=== PATIENT | male | born 1965 | race Caucasian/White ===

== ENCOUNTER → 2017-02-10 | Outpatient (CLI) | payer BC ==
[~2017-02-10] MED LIST: ACHYD1T PO; MAGN1TAB PO; POLY17PO23 PO
== END ==
LOC: LAB 09:32
PROVIDERS: ATTEND Internal Medicine
DX: R50.9 Fever, unspecified (principal); M79.1 Myalgia
CPT/HCPCS: 87804

== ENCOUNTER → 2018-04-07 | Outpatient (CLI) | payer BC ==
[~2018-04-07] VITALS: Ht 188 cm; Wt 99.8 kg
[2018-04-07] MEDS: LIDOCAINE 1% INJ 20 ML 20 ML VIAL INJ ONE (11:22)
[2018-04-07] MEDS: IOHEXOL 240 MGI/ML 20 ML (OMNIPAQUE) VIAL IV ONE (11:39)
[2018-04-07] MEDS: GADOBUTROL 7.5 MMOL/7.5 ML (GADAVIST) VIAL IV ONE (11:39)
[2018-04-07] MEDS: LIDOCAINE 1% INJ 20 ML 20 ML VIAL ONE (11:41)
--- NOTE | 2018-04-07 13:10 | Diagnostic Imaging Report ---
EXAMINATION: MRI of the right shoulder with contrast. INDICATION: Shoulder pain, prior history of shoulder surgery. TECHNIQUE: Multiplanar images utilizing both T1- and T2-weighted sequences were obtained. This study was performed following administration of intra-articular contrast. COMPARISON: There are no prior exams available for comparison. FINDINGS: On the STIR coronal series, there is no abnormal signal within the rotator cuff to suggest a tear. There is a vague area of increased signal within the musculotendinous portion of the supraspinatus muscle as it courses over the humeral head. This may be secondary to tendinosis. There is also some hypertrophy of the acromioclavicular joint, and this does result in narrowing of the outlet for the supraspinatus muscle. There is also a trace amount of fluid in the subdeltoid bursa. This does suggest that there is an element of mild inflammation present as well. The biceps tendon and the subscapularis tendon are intact. The axial images do suggest that there is a tear of the posterior labrum. The labrum is also thinned posteriorly and may be partially torn on a degenerative basis. There is no abnormal signal arising from the osseous structures to suggest bone edema or a fracture. There are two small cylindrical defects within the glenoid. Most likely, these are a sequela of prior surgery. IMPRESSION: 1. There is no evidence for a tear of the rotator cuff, and the supraspinatus muscle is not retracted or bunched. 2. There is hypertrophy of the acromioclavicular joint, and this does result in narrowing of the outlet for the supraspinatus muscle. There is also tendinosis of the musculotendinous portion of the supraspinatus muscle in this area. 3. There is a small tear of the labrum posteriorly. 4. There are postsurgical changes involving the glenoid. 5. There is no acute bony abnormality noted. Dictated by: Dictated on workstation # [id number]
--- NOTE | 2018-04-07 18:09 | Diagnostic Imaging Report ---
INDICATION: Right shoulder injury and pain. PROCEDURE: Patient was brought to the procedure room and placed on the table in the supine position. Right shoulder was prepped and draped in the usual sterile fashion. A small amount of 1% lidocaine was utilized for local anesthesia. A 22-gauge needle was advanced into the right shoulder at the rotator interval. 50 mL solution of iodinated contrast, normal saline and gadolinium was injected under fluoroscopic observation. Needle was withdrawn and hemostasis was obtained. Patient tolerated the procedure well and was sent to MRI in satisfactory condition. IMPRESSION: Successful right shoulder injection of gadolinium contrast solution, using fluoroscopy. Dictated by: Dictated on workstation # [id number]
== END ==
LOC: RAD 10:35
PROVIDERS: ATTEND Specialist
DX: S46.011A Strain of muscle(s) and tendon(s) of the rotator cuff of right shoulder, initial encounter (principal); M47.813 Spondylosis without myelopathy or radiculopathy, cervicothoracic region; M62.89 Other specified disorders of muscle; Z98.890 Other specified postprocedural states
CPT/HCPCS: 23350; 73040; 73222

== ENCOUNTER 2018-05-20 05:29 | Outpatient (CLI) | payer BC ==
[~2018-05-20] VITALS: Ht 188 cm; Wt 101.2 kg
[2018-05-20] MEDS ORDERED: ATOR20TA66 PO (12:31)
== END 2018-05-20 12:33 | disposition home or self-care (01) ==
LOC: PREOP 05:29
PROVIDERS: ATTEND Internal Medicine
DX: Z01.818 Encounter for other preprocedural examination (principal)

== ENCOUNTER 2018-05-27 06:54 | Day surgery (SDC) | payer BC ==
--- NOTE | 2018-05-09 17:31 | HISTORY AND PHYSICAL ---
DATE OF SERVICE: COLONOSCOPY HISTORY AND PHYSICAL HISTORY OF PRESENT ILLNESS: The patient is a 53-year-old white male, who was seen in the office on 04/28/2018 for yearly wellness evaluation. He had no previous history of screening colonoscopy. He is not aware of any family history for colon cancer, but does have one brother, who had history of colon polyps as well as prostate cancer diagnosed around the age of 50. He reports that he feels well and voices no complaints. PAST MEDICAL HISTORY: Significant for hyperlipidemia for which he takes atorvastatin 20 mg daily. His only prescription medication. He is on no aspirin or nonsteroidal medication. FAMILY HISTORY: Father is living, had had an CT in his early 70s and pacemaker placement, currently 79 years of age. Mother had a history of coronary stents placed in her early 70s and is 76 years of age. He has one brother in his mid 50s. He was diagnosed with prostate cancer around the age of 50. Not aware of any other family history for malignancy. PAST SURGICAL HISTORY: He reports no past surgeries. PHYSICAL EXAMINATION: GENERAL: Reveals a well-appearing white male in no acute distress. VITAL SIGNS: Blood pressure was 116/80, weight of 223.6 pounds, is up 1.6 pounds from one year ago. HEENT: Examination is unremarkable. NECK: Revealed no JVD, adenopathy or bruits. There is a Mallampati class 2 oropharyngeal configuration. CHEST: Clear to auscultation. CARDIOVASCULAR: Revealed a regular rate and rhythm without murmur, S3 or S4. ABDOMEN: Soft, supple without mass, organomegaly or tenderness. EXTREMITIES: Reveal no cyanosis, clubbing or edema. SKIN: Evaluation revealed no suspicious nevi. LABORATORY DATA: Blood tests were obtained including a chemistry panel, lipid panel and a PSA. PSA was stable and normal at 1.95. Total cholesterol is 145 with an HDL of 46, triglyceride level 152 and LDL of 69. Nonfasting blood sugar was 106. His chemistry panel was normal. BUN 23 with a creatinine of 1.3 and estimated GFR 63. ASSESSMENT AND PLAN: Unremarkable wellness examination. Rectal examination was deferred to the time of colonoscopy. He does have a history of BPH. Colonoscopy was set up for 05/27/2018. Prep instructions with Suprep kit were given and questions were answered. We will see him back for yearly wellness evaluation. In addition, the patient did receive his flu shot in 01/2018. Job ID: [id number] DocumentID: [id number] Dictated Date: 04/28/2018 16:29:18 Bladder Blower Date: 04/28/2018 17:16:47 Dictated By: EMILY HILL MD
[~2018-05-27] VITALS: Ht 188 cm; Wt 101.2 kg
[~2018-05-27 06:54] MED LIST changes: +ATOR20TA66 PO
[2018-05-27] MEDS ORDERED: D5 LR IV SOLUTION 1,000 ML IV ONE (07:01)
[2018-05-27] MEDS ORDERED: D5 LR IV SOLUTION 1,000 ML IV STA (07:16)
[2018-05-27 07:19] VITALS: BP 131/91
[2018-05-27] MEDS ORDERED: fentaNYL INJECTION 100 MCG/2 ML AMP ONE ×2 (07:26→08:13)
[2018-05-27] MEDS ORDERED: MIDAZOLAM 2 MG/2 ML (VERSED) VIAL ONE ×3 (07:26→08:29)
[2018-05-27] MEDS ORDERED: LIDOCAINE JELLY 2% 6 ML SYRINGE ONE (07:27)
[2018-05-27] MEDS ORDERED: fentaNYL INJECTION 100 MCG/2 ML AMP IVP ONE (07:30)
[2018-05-27] MEDS ORDERED: LIDOCAINE JELLY 2% 6 ML SYRINGE MM PRN (07:30)
[2018-05-27] MEDS ORDERED: MIDAZOLAM 2 MG/2 ML (VERSED) VIAL IVP ONE (07:30)
--- NOTE | 2018-05-27 08:49 | Pre-Op Note & Conscious Sedat ---
Pre-Operative Progress Note H&P Reviewed The H&P was reviewed, patient examined and no changes noted. Date H&P Reviewed: May 27, 2018 Time H&P Reviewed: 07:30 Conscious Sedation Pre-Proced ASA Score 2 For ASA 3 and 4: Consider anesthesia and medical clearance. Also, for patients with a history of failed moderate sedation consider anesthesia. Airway Lungs Heart ASA score ASA 1: a normal healthy patient ASA 2: a patient with a mild systemic disease (mid diabetes, controlled hypertension, obesity ASA 3: a patient with a severe systemic disease that limits activity (angina , COPD, prior Myocardial infarction) ASA 4: a patient with an incapacitating disease that is a constant threat to life (CHF, renal failure) ASA 5: a moribund patient not expected to survive 24 hrs. (ruptured aneurysm) ASA 6: a declared brain- patient whose organs are being harvested. For emergent operations, add the letter E after the classification Mallampati Classification Grade 2 Sedation Plan Analgesia, Amnesia, Plan communicated to team members, Discussed options with patient/fam, Discussed risks with patient/fam The patient is an appropriate candidate to undergo the planned procedure, sedation, and anesthesia. The patient immediately re-assessed prior to indication. EMILY HILL MD May 27, 2018 08:49
[2018-05-27 08:58] VITALS: BP 108/69
[2018-05-27 09:28] VITALS: BP 121/83
--- OUTSIDE RECORDS SUMMARY | 2018-05-27 12:25 | XMS REPORT | Continuity of Care Document ---
Author Author [facility] Organization [facility] Address Unknown Phone Unavailable Allergies Active Description Code Type Severity Reaction Onset Reported/Identified Relationship to Patient Clinical Status Yes codeine [id number] Drug Allergy Unknown N/A 10/03/2012 Medications There is no data. Problems Date Dx Coded Attending Type Code Diagnosis Diagnosed By 10/05/2012 EMILY HILL MD Ot 276.51 DEHYDRATION 10/05/2012 EMILY HILL MD Ot 536.8 STOMACH FUNCTION DIS NEC 10/05/2012 EMILY HILL MD Ot 584.9 ACUTE RENAL FAILURE, UNSPECIFIED 10/05/2012 EMILY HILL MD Ot 591 HYDRONEPHROSIS 10/05/2012 EMILY HILL MD Ot 592.1 CALCULUS OF URETER 02/11/2017 EMILY HILL MD Ot M79.1 MYALGIA 02/11/2017 EMILY HILL MD Ot R50.9 FEVER, UNSPECIFIED 02/25/2017 EMILY HILL MD Ot M79.1 MYALGIA 02/25/2017 EMILY HILL MD Ot R50.9 FEVER, UNSPECIFIED 02/25/2017 EMILY HILL MD Ot M79.1 MYALGIA 02/25/2017 EMILY HILL MD Ot R50.9 FEVER, UNSPECIFIED 10/12/2017 EMILY HILL MD Ot M79.1 MYALGIA 10/12/2017 EMILY HILL MD Ot R50.9 FEVER, UNSPECIFIED 03/31/2018 EMILY HILL MD Ot M79.1 MYALGIA 03/31/2018 EMILY HILL MD Ot R50.9 FEVER, UNSPECIFIED 04/06/2018 EMILY HILL MD Ot M79.1 MYALGIA 04/06/2018 EMILY HILL MD Ot R50.9 FEVER, UNSPECIFIED 04/09/2018 ANGELO ROSALES, XAVIER R Ot M47.813 SPONDYLS W/O MYELOPATHY OR RADICULOPATHY 04/09/2018 XAVIER STEPHENS MD Ot M62.89 OTHER SPECIFIED DISORDERS OF MUSCLE 04/09/2018 XAVIER STEPHENS MD Ot S46.011A STRAIN OF MUSC/TEND THE ROTATOR CUFF OF 04/09/2018 XAVIER STEPHENS MD Ot Z98.890 OTHER SPECIFIED POSTPROCEDURAL STATES 04/10/2018 EMILY HILL MD, Ot M79.1 MYALGIA 04/10/2018 EMILY HILL MD Ot R50.9 FEVER, UNSPECIFIED 04/10/2018 XAVIER STEPHENS MD Ot M47.813 SPONDYLS W/O MYELOPATHY OR RADICULOPATHY 04/10/2018 XAVIER STEPHENS MD Ot M62.89 OTHER SPECIFIED DISORDERS OF MUSCLE 04/10/2018 XAVIER STEPHENS MD Ot S46.011A STRAIN OF MUSC/TEND THE ROTATOR CUFF OF 04/10/2018 XAVIER STEPHENS MD Ot Z98.890 OTHER SPECIFIED POSTPROCEDURAL STATES 05/05/2018 EMILY HILL MD Ot M79.1 MYALGIA 05/05/2018 EMILY HILL MD Ot R50.9 FEVER, UNSPECIFIED 05/05/2018 XAVIER STEPHENS MD Ot M47.813 SPONDYLS W/O MYELOPATHY OR RADICULOPATHY 05/05/2018 XAVIER STEPHENS MD Ot M62.89 OTHER SPECIFIED DISORDERS OF MUSCLE 05/05/2018 XAVIER STEPHENS MD Ot S46.011A STRAIN OF MUSC/TEND THE ROTATOR CUFF OF 05/05/2018 XAVIER STEPHENS MD Ot Z98.890 OTHER SPECIFIED POSTPROCEDURAL STATES 05/20/2018 EMILY HILL MD Ot Z01.818 ENCOUNTER FOR OTHER PREPROCEDURAL EXAMIN 05/23/2018 EMILY HILL MD Ot Z01.818 ENCOUNTER FOR OTHER PREPROCEDURAL EXAMIN Procedures There is no data. Results Test Result Range Influenza virus A and B antigen detection - 02/10/17 09:41 FLU RESULT NEGATIVE FOR INFLUENZA A AND B ANTIGENS BY IA NRG Encounters ACCT No. Visit Date/Time Discharge Status Pt. Type Provider Facility Loc./Unit Complaint [id number] 05/20/2018 05:29:00 05/20/2018 12:33:00 DIS Outpatient EMILY HILL MD [facility] PREOP COLONOSCOPY [id number] 04/07/2018 10:35:00 04/07/2018 23:59:59 CLS Outpatient XAVIER STEPHENS MD [facility] RAD STRAIN OF RT SHOULDER [id number] 02/10/2017 09:32:00 02/10/2017 23:59:59 CLS Outpatient EMILY HILL MD [facility] LAB FEVER [id number] 10/03/2012 14:08:00 10/05/2012 09:30:00 DIS Inpatient EMILY HILL MD [facility] SURGICAL L URETERAL STONE W/ OBSTRUCTION ABD PAIN N/V [id number] 05/27/2018 06:54:00 ACT Outpatient EMILY HILL MD [facility] ENDO SCREENING
--- OUTSIDE RECORDS SUMMARY | 2018-05-27 12:25 | XMS REPORT | Continuity of Care Document ---
Author Author [facility] Organization [facility] Address Unknown Phone Unavailable Care Team Providers Care [employer] Principal Name Role Phone EMILY HILL MD PP Insurance Providers Payer Name Policy Number Subscriber Name [id number] Emily Pichardo 01 Self / Same As Patient Advance Directives Directive Response Recorded Date Advance Directives N 10/03/12 2:28pm Health Care Power of Automated Equipment Engineer Technician N 10/03/12 2:28pm Organ Donor N 10/03/12 2:28pm Problems No Known Problems or Medical conditions. Family History History Response Recorded Date/Time Hx Family Cancer N 10/03/12 3:46pm Social History History Response Recorded Date/Time Alcohol Use Occasionally Uses 10/03/12 2: 18pm Recreational Drug Use N 10/03/12 2:18pm Allergies, Adverse Reactions, Alerts Allergen Type Severity Reaction Last Updated Codeine Allergy Unknown 10/03/12 Medications Medication Dose Units Route Sig Qty Days Hydrocodone Bit/Acetaminophen (Lortab 10 Mg) 1 - 2 Tab PO Q4H PRN 30 Magnesium Carbonate/Al Hydrox (Gaviscon Es Tablet Chew) 2 Tab.chew PO Q4H Polyethylene Glycol (Miralax 17 Gm Packet) 17 Gm PO DAILY Response Recorded Date/Time Status not known Unknown Results Test Date Result Interp. Ref. Range Alanine Aminotransferase (ALT/SGPT) October 03, 2012 10:42am 46 U/L N 30-65 Albumin October 03, 2012 10:42am 4.5 G/DL N 3.4-5.0 Alkaline Phosphatase October 03, 2012 10:42am 110 U/L N 50-136 Aspartate Amino Transf (AST/SGOT) October 03, 2012 10:42am 21 U/L N 15-37 BUN/Creatinine Ratio October 03, 2012 10:42am 14 - Basophils # (Auto) October 03, 2012 10:42am 0.0 10^3/uL N 0.0-0.1 Basophils (%) (Auto) October 03, 2012 10:42am 1 % N 0-10 Blood Urea Nitrogen October 03, 2012 10:42am 21 MG/DL H 7-18 C-Reactive Protein October 03, 2012 10:42am < 0.2 MG/DL L 0.2-0.9 Calcium Level October 03, 2012 10:42am 8.8 MG/DL N 8.5-10.1 Carbon Dioxide Level October 03, 2012 10:42am 25 MMOL/L N 21-32 Chloride Level October 03, 2012 10:42am 100 MMOL/L L 101-110 Creatinine October 03, 2012 10:42am 1.5 MG/ DL H 0.6-1.3 Eosinophils # (Auto) October 03, 2012 10:42am 0.2 10^3/uL N 0.0-0.3 Eosinophils (%) (Auto) October 03, 2012 10:42am 3 % N 0-10 Glucose Level October 03, 2012 10:42am 168 MG/DL H 74-106 Hematocrit October 03, 2012 10:42am 44 % N 40-54 Hemoglobin October 03, 2012 10:42am 16.1 G/ DL N 13.3-17.7 Lymphocytes # (Auto) October 03, 2012 10:42am 3.9 X 10^3 N 1.0-4.0 Lymphocytes (%) (Auto) October 03, 2012 10:42am 50 % H 12-44 Mean Corpuscular Hemoglobin October 03, 2012 10:42am 32 PG N 25-34 Mean Corpuscular Hemoglobin Concent October 03, 2012 10:42am 36 G/DL N 32-36 Mean Corpuscular Volume October 03, 2012 10:42am 88 FL N 80-99 Mean Platelet Volume October 03, 2012 10:42am 9.8 FL N 7.4-10.4 Monocytes # (Auto) October 03, 2012 10:42am 0.7 X 10^3 N 0.0-1.0 Monocytes (%) (Auto) October 03, 2012 10:42am 9 % N 0-12 Neutrophils # (Auto) October 03, 2012 10:42am 2.9 X 10^3 N 1.8-7.8 Neutrophils (%) (Auto) October 03, 2012 10:42am 38 % L 42-75 Platelet Count October 03, 2012 10:42am 340 10^3/uL N 130-400 Potassium Level October 03, 2012 10:42am 3.9 MMOL/L N 3.6-5.0 Red Blood Count October 03, 2012 10:42am 5.02 10^6/uL N 4.35-5.85 Red Cell Distribution Width October 03, 2012 10:42am 12.1 % N 10.0-14.5 Sodium Level October 03, 2012 10:42am 136 MMOL/L N 135-145 Total Bilirubin October 03, 2012 10:42am 0.7 MG/DL N 0.0-1.0 Total Protein October 03, 2012 10:42am 8.0 G/DL N 6.4-8.2 Urine Bacteria October 03, 2012 11:55am TRACE /HPF - Urine Bilirubin October 03, 2012 11:55am NEGATIVE - Urine Casts October 03, 2012 11:55am NONE / LPF - Urine Clarity October 03, 2012 11:55am CLEAR - Urine Color October 03, 2012 11:55am YELLOW - Urine Crystals October 03, 2012 11:55am NONE /LPF - Urine Culture Indicated October 03, 2012 11:55am NO - Urine Glucose (UA) October 03, 2012 11:55am 1+ H - Urine Ketones October 03, 2012 11:55am 2+ H - Urine Leukocyte Esterase October 03, 2012 11:55am NEGATIVE - Urine Mucus October 03, 2012 11:55am SMALL /LPF H - Urine Nitrite October 03, 2012 11:55am NEGATIVE - Urine Protein October 03, 2012 11:55am NEGATIVE - Urine RBC October 03, 2012 11:55am 2-5 / HPF H - Urine Specific [place] October 03, 2012 11:55am 1.015 L - Urine Squamous Epithelial Cells October 03, 2012 11:55am 0-2 /HPF - Urine Urobilinogen October 03, 2012 11:55am NORMAL MG/DL - Urine WBC October 03, 2012 11:55am RARE / HPF - Urine pH October 03, 2012 11:55am 7 - White Blood Count October 03, 2012 10:42am 7.8 10^3/uL N 4.3-11.0 Estimat Glomerular Filtration Rate October 03, 2012 10:42am 51 - Urine RBC (Auto) October 03, 2012 11:55am 2 + H - Encounters Encounter Location Date/Time Discharged Inpatient [facility] 2:08pm Departed Emergency Room [facility] 12 :00am
--- NOTE | 2018-05-27 21:55 | OPERATIVE REPORT ---
DATE OF SERVICE: COLONOSCOPY SUMMARY INDICATION FOR THE PROCEDURE: Screening colonoscopy. The patient was placed in left lateral decubitus position. Prior to doing colonoscopy, digital rectal evaluation was performed. Anal sphincter tone was normal and the perianal reflexes intact. No abnormalities, no additional inspection of the prostate, anal canal or distal rectal vault. The colonoscope was then inserted into the rectum and under direct visualization advanced to the cecum. The cecum was identified by identification of the ileocecal valve and cecal strap. Photographic documentation was obtained. Careful inspection was made as the colonoscope was withdrawn. FINDINGS: No evidence for internal or external hemorrhoids and the rectum was unremarkable. Sigmoid colon, descending colon, splenic flexure, transverse colon were normal. Present at hepatic flexure was diminutive 4 mm sessile polyp. It was photographed and biopsied and ablated and submitted for histopathology. The ascending colon and cecum were unremarkable. ASSESSMENT: One diminutive polyp was removed via hot forceps from the hepatic flexure with no significant blood loss. This was an otherwise normal colonoscopy to the cecum. We will be abdicating consideration for repeat screening colonoscopy in 10 years as long as there are no surprises on histopathology report and I am his primary care provider. Job ID: [id number] DocumentID: [id number] Dictated Date: 05/27/2018 11:14:29 [employer] Marble Installer Date: 05/27/2018 21:55:00 Dictated By: EMILY HILL MD
== END 2018-05-27 09:40 | disposition home or self-care (01) ==
LOC: ENDO 06:54
PROVIDERS: ATTEND Internal Medicine
DX: Z12.11 Encounter for screening for malignant neoplasm of colon (principal); D12.3 Benign neoplasm of transverse colon; E78.5 Hyperlipidemia, unspecified; N40.0 Benign prostatic hyperplasia without lower urinary tract symptoms; Z79.899 Other long term (current) drug therapy; Z83.71 Family history of colonic polyps; Z80.42 Family history of malignant neoplasm of prostate

== ENCOUNTER 2021-01-13 09:28 | Outpatient (RCR) | payer BC | END 2021-03-18 | disposition home or self-care (01) | DX: M54.2 Cervicalgia (principal); M25.511 Pain in right shoulder ==

== ENCOUNTER 2021-05-18 19:19 | Emergency (ER) | payer BC ==
[2021-05-18] MEDS ORDERED: LACTATED RINGERS 1,000 ML IV SCH (19:30)
[2021-05-18] MEDS ORDERED: KETOROLAC 30 MG/ML VIAL IVP ONE (19:30)
[2021-05-18] MEDS ORDERED: ONDANSETRON 4 MG/2 ML (SDV) Z0FRAN IVP ONE (19:30)
--- NOTE | 2021-05-18 19:35 | ED GU-Male ---
General Chief Complaint: Abdominal/GI Problems Stated Complaint: KIDNEY STONE Source: patient Exam Limitations: no limitations (DONNA RICHMOND APRN) History of Present Illness Date Seen by Provider: May 18, 2021 Time Seen by Provider: 19:33 Initial Comments To ER with sudden onset of left flank pain that began about 2 hours ago. It radiates down to his left testicle. No fever no chills. He has a history of a kidney stone seven or 8 years ago. His only medication is atorvastatin. He follows with Dr. Sharma. Timing/Duration: constant Severity/Quality: moderate Location: left flank Radiation: none Activities at Onset: none Prior Genitourinary Problems: none (DONNA RICHMOND APRN) Allergies and Home Medications Allergies Coded Allergies: Codeine (Unverified Allergy, Unknown, 10/03/12) Patient Home Medication List Home Medication List Reviewed: Yes (DONNA RICHMOND APRN) Atorvastatin Calcium (Atorvastatin Calcium) 20 Mg Tablet, 20 MG PO DAILY, (Reported) Entered as Reported by: YOHANNES TILLMAN on 05/20/18 1231 Hydrocodone/Acetaminophen (Hydrocodone-Acetamin 5-325 mg) 1 Each Tablet, 1 TAB PO Q4H PRN for PAIN-MODERATE (5-7) Prescribed by: DONNA RICHMOND on 05/18/212002 Ibuprofen (Ibuprofen) 800 Mg Tablet, 800 MG PO Q8H PRN for PAIN Prescribed by: DONNA RICHMOND on 05/18/212002 Ondansetron (Ondansetron Odt) 8 Mg Tab.rapdis, 8 MG PO Q6H PRN for NAUSEA/VO MITING Prescribed by: DONNA RICHMOND on 05/18/212035 Sulfamethoxazole/Trimethoprim (Bactrim Ds Tablet) 1 Each Tablet, 1 EACH PO BID Prescribed by: DONNA RICHMOND on 05/18/212002 Tamsulosin HCl (Flomax) 0.4 Mg Cap, 0.4 MG PO DAILY Prescribed by: DONNA RICHMOND on 05/18/212002 Review of Systems Review of Systems Constitutional: see HPI; No chills, No fever EENTM: see HPI Respiratory: no symptoms reported Cardiovascular: no symptoms reported Genitourinary: see HPI Musculoskeletal: no symptoms reported Skin: no symptoms reported Psychiatric/Neurological: No Symptoms Reported Endocrine: No Symptoms Reported Hematologic/Lymphatic: No Symptoms Reported (DONNA RICHMOND APRN) Past Dmolhvn-Jrczwl-Qpapks Hx Seasonal Allergies Seasonal Allergies: No (DONNA RICHMOND APRN) Past Medical History Surgeries: Yes (shoulder sx) Gallbladder Respiratory: No Cardiac: No Neurological: No Reproductive Disorders: No Genitourinary: No Gastrointestinal: No Musculoskeletal: No Endocrine: No HEENT: No Cancer: No Psychosocial: No Integumentary: No Blood Disorders: No (DONNA RICHMOND APRN) Physical Exam Vital Signs Vital Signs - First Documented 05/18/21 19:27 Temp 36.2 Pulse 85 Resp 16 B/P (MAP) 140/95 (110) Pulse Ox 98 O2 Delivery Room Air (SAJAN ESPINOZA MD) Vital Signs Capillary Refill : (DONNA RICHMOND APRN) Height, Weight, BMI Height: 6'2.00" Weight: 223lbs. 0.0oz. [id number]; 28.6 BMI Method:Stated General Appearance: WD/WN, mild distress, other (Currently, pain is improved he rates it at 5 out of 10.) HEENT: PERRL/EOMI, normal ENT inspection Neck: non-tender, full range of motion Respiratory: normal breath sounds, no respiratory distress, no accessory muscle use Gastrointestinal: normal bowel sounds, non tender, soft Back: CVA tenderness (L) Neurologic/Psychiatric: alert, normal mood/affect Skin: normal color, diaphoresis (DONNA RICHMOND APRN) Progress/Results/Core Measures Suspected Sepsis SIRS Temperature: Pulse: Respiratory Rate: Laboratory Tests 05/18/21 19:30: White Blood Count 7.9 Blood Pressure / Mean: Laboratory Tests 05/18/21 19:30: Creatinine 1.54H, Platelet Count 329 (DONNA RICHMOND APRN) Results/Orders Lab Results Laboratory Tests Test 05/18/21 19:30 05/18/21 20:45 Range/Units White Blood Count 7.9 4.3-11.0 10^3/uL Red Blood Count 4.76 4.30-5.52 10^6/uL Hemoglobin 14.9 13.3-17.7 g/dL Hematocrit 44 40-54 % Mean Corpuscular Volume 93 80-99 fL Mean Corpuscular Hemoglobin 31 25-34 pg Mean Corpuscular Hemoglobin Concent 34 32-36 g/dL Red Cell Distribution Width 11.4 10.0-14.5 % Platelet Count 329 130-400 10^3/uL Mean Platelet Volume 9.5 9.0-12.2 fL Immature Granulocyte % (Auto) 0 % Neutrophils (%) (Auto) 53 42-75 % Lymphocytes (%) (Auto) 36 12-44 % Monocytes (%) (Auto) 8 0-12 % Eosinophils (%) (Auto) 3 0-10 % Basophils (%) (Auto) 1 0-10 % Neutrophils # (Auto) 4.2 1.8-7.8 10^3/uL Lymphocytes # (Auto) 2.8 1.0-4.0 10^3/uL Monocytes # (Auto) 0.6 0.0-1.0 10^3/uL Eosinophils # (Auto) 0.2 0.0-0.3 10^3/uL Basophils # (Auto) 0.1 0.0-0.1 10^3/uL Immature Granulocyte # (Auto) 0.0 0.0-0.1 10^3/uL Sodium Level 141 135-145 MMOL/L Potassium Level 3.9 3.6-5.0 MMOL/L Chloride Level 103 98-107 MMOL/L Carbon Dioxide Level 23 21-32 MMOL/L Anion Gap 15 H 5-14 MMOL/L Blood Urea Nitrogen 24 H 7-18 MG/DL Creatinine 1.54 H 0.60-1.30 MG/DL Estimat Glomerular Filtration Rate 53 BUN/Creatinine Ratio 16 Glucose Level 113 H 70-105 MG/DL Calcium Level 9.3 8.5-10.1 MG/DL Urine Color YELLOW Urine Clarity CLEAR Urine pH 6.0 5-9 Urine Specific [place] 1.025 H 1.016-1.022 Urine Protein NEGATIVE NEGATIVE Urine Glucose (UA) NEGATIVE NEGATIVE Urine Ketones NEGATIVE NEGATIVE Urine Nitrite NEGATIVE NEGATIVE Urine Bilirubin NEGATIVE NEGATIVE Urine Urobilinogen 0.2 < = 1.0 MG/DL Urine Leukocyte Esterase NEGATIVE NEGATIVE Urine RBC (Auto) 3+ H NEGATIVE Urine RBC 10-25 H /HPF Urine WBC 2-5 /HPF Urine Squamous Epithelial Cells NONE /HPF Urine Renal Epithelial Cells NONE /HPF Urine Crystals NONE /LPF Urine Bacteria NEGATIVE /HPF Urine Casts NONE /LPF Urine Mucus NEGATIVE /LPF Urine Culture Indicated NO (SAJAN ESPINOZA MD) Medications Given in ED Current Medications Medications Dose Ordered Sig/José Route Start Time Stop Time Status Last Admin Dose Admin Acetaminophen/ Hydrocodone Bitart 1 ea Q4H PRN PO 05/18/21 20:15 05/18/21 20:53 DC 05/18/21 20:40 1 EA Ketorolac Tromethamine 15 mg ONCE ONCE IVP 05/18/21 19:30 05/18/21 19:31 DC 05/18/21 19:36 15 MG Ondansetron HCl 8 mg ONCE ONCE IVP 05/18/21 19:30 05/18/21 19:31 DC 05/18/21 19:36 8 MG (SAJAN ESPINOZA MD) Vital Signs/I&O 05/18/21 05/18/21 19:27 20:53 Temp 36.2 36.2 Pulse 85 79 Resp 16 16 B/P (MAP) 140/95 (110) 138/94 Pulse Ox 98 98 O2 Delivery Room Air Room Air 05/19/21 00:00 Intake Total 1000 ml Balance 1000 ml (SAJAN ESPINOZA MD) Vital Signs/I&O Capillary Refill : (DONNA RICHMOND APRN) Departure Impression Primary Impression: Left ureteral calculus Disposition: HOME, SELF-CARE Condition: Stable Departure-Patient Inst. Decision time for Depature: 20:01 (DONNA RICHMOND APRN) Referrals: EMILY SHARMA MD (PCP/Family) Primary Care Physician MIRANDA ERWIN MD Patient Instructions: Kidney Stones (DC) Add. Discharge Instructions: 1. Return to ER for any concerns 2. Follow-up with your doctor next week 3. Increase fluid intake. Medication as directed. All discharge instructions reviewed with patient and/or family. Voiced understanding. Scripts Ondansetron (Ondansetron Odt) 8 Mg Tab.rapdis 8 MG PO Q6H PRN for NAUSEA/VOMITING, #14 TAB Prov: DONNA RICHMOND APRN 05/18/21 Hydrocodone/Acetaminophen (Hydrocodone-Acetamin 5-325 mg) 1 Each Tablet 1 TAB PO Q4H PRN for PAIN-MODERATE (5-7), #14 TAB Prov: DONNA RICHMOND APRN 05/18/21 Ibuprofen (Ibuprofen) 800 Mg Tablet 800 MG PO Q8H PRN for PAIN, #30 TAB 0 Refills Prov: DONNA RICHMOND APRN 05/18/21 Sulfamethoxazole/Trimethoprim (Bactrim Ds Tablet) 1 Each Tablet 1 EACH PO BID, #10 TAB Prov: DONNA RICHMOND APRN 05/18/21 Tamsulosin HCl (Flomax) 0.4 Mg Cap 0.4 MG PO DAILY, #10 CAP Prov: DONNA RICHMOND APRN 05/18/21 Work/School Note: Work Release Form Date Seen in the Emergency Department: May 18, 2021 Return to Work: May 20, 2021 ATTENDING PHYSICIAN NOTE: I was physically present as attending physician in the emergency department during the care of this patient, but I was not directly involved in the decision making or delivery of care for this patient. (SAJAN ESPINOZA MD) Copy Copies To 1: EMILY SHARMA MD, PETER J APRN May 18, 2021 19:35 SAJAN ESPINOZA MD May 19, 2021 04:56
[2021-05-18 19:38] LABS: BASOPHILS # (AUTO) 0.1 10^3/uL (0.0-0.1); BASOPHILS % (AUTO) 1 % (0-10); EOSINOPHILS # (AUTO) 0.2 10^3/uL (0.0-0.3); EOSINOPHILS % (AUTO) 3 % (0-10); HEMATOCRIT 44 % (40-54); HEMOGLOBIN 14.9 g/dL (13.3-17.7); LYMPHOCYTES # (AUTO) 2.8 10^3/uL (1.0-4.0); LYMPHOCYTES % (AUTO) 36 % (12-44); MEAN CORPUSCULAR HEMOGLOBIN 31 pg (25-34); MEAN CORPUSCULAR HGB CONC 34 g/dL (32-36); MEAN CORPUSCULAR VOLUME 93 fL (80-99); MEAN PLATELET VOLUME 9.5 fL (9.0-12.2); MONOCYTES # (AUTO) 0.6 10^3/uL (0.0-1.0); MONOCYTES % (AUTO) 8 % (0-12); NEUTROPHILS # (AUTO) 4.2 10^3/uL (1.8-7.8); NEUTROPHILS % (AUTO) 53 % (42-75); PLATELET COUNT 329 10^3/uL (130-400); WHITE BLOOD COUNT 7.9 10^3/uL (4.3-11.0)
[2021-05-18] MEDS ORDERED: ACHD5005 PO (20:03)
[2021-05-18] MEDS ORDERED: TMSL.4C PO (20:03)
[2021-05-18] MEDS ORDERED: SULF1TAB38 PO (20:03)
[2021-05-18] MEDS ORDERED: IBUP-1780 PO (20:03)
[2021-05-18 20:09] LABS: CALCIUM 9.3 MG/DL (8.5-10.1); CREATININE SERUM 1.54 MG/DL (0.60-1.30); POTASSIUM 3.9 MMOL/L (3.6-5.0)
--- NOTE | 2021-05-18 20:10 | Diagnostic Imaging Report ---
PROCEDURE: CT urinary tract, rule out kidney stone. TECHNIQUE: Multiple contiguous axial images were obtained through the abdomen and pelvis without the use of intravenous contrast. Auto Exposure Controls were utilized during the CT exam to meet ALARA standards for radiation dose reduction. INDICATION: 56-year-old male, lower abdominal pain with history of renal stones. CORRELATION STUDY: 10/04/2012. FINDINGS: LOWER THORAX: Clear. LIVER: Unremarkable. GALLBLADDER: Cholecystectomy. SPLEEN: Unremarkable. PANCREAS: Unremarkable. ADRENAL GLANDS: Unremarkable. KIDNEYS: 7 mm stone in superior pole of right kidney. 3 mm stone distal left ureter near the UVJ results in mild left-sided obstruction. ABDOMINAL AORTA: Unremarkable, nonaneurysmal. GASTROINTESTINAL TRACT: Stomach mildly distended with retained gastric contents. No small bowel obstruction. Mild to moderate stool through the colon. Nonvisualized appendix. URINARY BLADDER: Decompressed. REPRODUCTIVE: Unremarkable. OSSEOUS STRUCTURES: No acute abnormality. OTHER: None. IMPRESSION: 1. 3 mm stone in distal left ureter near the UVJ results in currently mild obstruction. 2. Nonobstructing 7 mm stone in superior pole of right kidney. Dictated by: Dictated on workstation # [id number]
[2021-05-18] MEDS ORDERED: RX-ONDANSETRON 4 MG ODT (ZOFRAN) PPK #4 PO STA ×2 (20:14→20:32)
[2021-05-18] MEDS ORDERED: TAMSULOSIN 0.4 MG (FLOMAX) CAP PO SCH (20:15)
[2021-05-18] MEDS ORDERED: CEPHALEXIN 250 MG (KEFLEX) CAP PO SCH (20:15)
--- NOTE | 2021-05-18 20:20 | Diagnostic Imaging Report ---
INDICATION: Lower flank pain, history of stones. TECHNIQUE: 2 supine view of the abdomen 7:52 PM. CORRELATION STUDY: 10/05/2012. FINDINGS: Lung bases clear. Moderate stool and bowel gas obscures detail. Cholecystectomy clips are present. Approximately 7 mm calcification in the right upper quadrant suspect for right renal stone. Calcifications in the pelvis are present, likely large phleboliths. There is however small 2 to 3 mm punctate calcination which is not definitively present on prior. Osseous structures unremarkable for acute findings. IMPRESSION: 1. Calcifications suspect with superior pole right kidney. 2. Faint calcination in left hemipelvis not definitively present on prior. Likely corresponds to the known small calcification in the distal left ureter on accompanying renal colic CT. Dictated by: Dictated on workstation # [id number]
[2021-05-18] MEDS ORDERED: ONDA8TAB13 PO (20:36)
[2021-05-18 20:53] VITALS: BP 138/94
[2021-05-18 20:57] LABS: BILIRUBIN,URINE NEGATIVE (NEGATIVE); CLARITY,URINE CLEAR; COLOR,URINE YELLOW; GLUCOSE, URINE (UA) NEGATIVE (NEGATIVE); KETONES,URINE NEGATIVE (NEGATIVE); LEUKOCYTE ESTERASE ,URINE NEGATIVE (NEGATIVE); NITRITE,URINE NEGATIVE (NEGATIVE); PROTEIN,URINE NEGATIVE (NEGATIVE)
[2021-05-18 21:10] LABS: BACTERIA,URINE NEGATIVE /HPF
[2021-05-19] MEDS ORDERED: OXYC5TAB PO (10:24)
[2021-05-19] MEDS ORDERED: KETO10TA PO (10:24)
== END 2021-05-18 20:53 | disposition home or self-care (01) ==
LOC: EDUNIT# 19:19 → ER 19:20
DX: N20.1 Calculus of ureter (principal)
CPT/HCPCS: 36415; 74018; 74176; 80048; 81000; 85025

== ENCOUNTER 2021-05-19 08:39 | Emergency (ER) | payer BC ==
[~2021-05-19] VITALS: Ht 187.9 cm; Wt 95.3 kg
[~2021-05-19 08:39] MED LIST changes: +ACHD5005 PO; +IBUP-1780 PO; +ONDA8TAB13 PO; +SULF1TAB38 PO; +TMSL.4C PO
[2021-05-19] MEDS ORDERED: KETOROLAC 30 MG/ML VIAL ONE (08:50)
[2021-05-19] MEDS ORDERED: fentaNYL INJ 100 MCG/2 ML AMP ONE (08:50)
[2021-05-19] MEDS ORDERED: KETOROLAC 30 MG/ML VIAL IVP ONE (09:00)
[2021-05-19] MEDS ORDERED: LACTATED RINGERS 1,000 ML IV SCH (09:00)
[2021-05-19] MEDS ORDERED: ONDANSETRON 4 MG/2 ML (SDV) Z0FRAN IVP ONE (09:00)
[2021-05-19] MEDS ORDERED: fentaNYL INJ 100 MCG/2 ML AMP IVP ONE (09:00)
--- NOTE | 2021-05-19 09:07 | ED GU-Male ---
General Chief Complaint: - Reproductive Stated Complaint: BACK/ABD PAIN KIDNEY STONE Source: patient Exam Limitations: no limitations History of Present Illness Date Seen by Provider: May 19, 2021 Time Seen by Provider: 08:45 Initial Comments 56-year-old male with past medical history of hyperlipidemia and previous kidney stones coming in due to left flank pain. Pain started last night, came to the emergency department, had a CT, and there was a 3 mm stone on the left in transit. Was sent home with pain medication and was doing well last night. Woke up at 7 AM this morning with severe, sharp, constant left flank pain that is significantly worse. Pain is now radiating to his left testicle. Still urinating but less. Denies any dysuria, fever, abdominal pain, vomiting, diarrhea, or any other concerns. Having some nausea. Is otherwise denying any other acute complaints. Has never required any urologic procedure for kidney stones. Allergies and Home Medications Allergies Coded Allergies: codeine (Unverified Allergy, Unknown, 10/03/12) Patient Home Medication List Home Medication List Reviewed: Yes Atorvastatin Calcium (Atorvastatin Calcium) 20 Mg Tablet, 20 MG PO DAILY, (Reported) Entered as Reported by: YOHANNES TILLMAN on 05/20/18 1231 Hydrocodone/Acetaminophen (Hydrocodone-Acetamin 5-325 mg) 1 Each Tablet, 1 TAB P O Q4H PRN for PAIN-MODERATE (5-7) Prescribed by: DONNA RICHMOND on 05/18/212002 Ibuprofen (Ibuprofen) 800 Mg Tablet, 800 MG PO Q8H PRN for PAIN Prescribed by: DONNA RICHMOND on 05/18/212002 Ketorolac Tromethamine (Ketorolac Tromethamine) 10 Mg Tablet, 10 MG PO Q8H Prescribed by: GALILEO GARCIA on 05/19/21 1024 Ondansetron (Ondansetron Odt) 8 Mg Tab.rapdis, 8 MG PO Q6H PRN for NAUSEA/VOMITING Prescribed by: DONNA RICHMOND on 05/18/21 203 Oxycodone HCl (Oxycodone HCl) 5 Mg Tablet, 5 MG PO Q6H PRN for PAIN-SEVERE (8- 10) Prescribed by: GALILEO GARCIA on 05/19/21 1025 Sulfamethoxazole/Trimethoprim (Bactrim Ds Tablet) 1 Each Tablet, 1 EACH PO BID Prescribed by: DONNA RICHMOND on 05/18/212002 Tamsulosin HCl (Flomax) 0.4 Mg Cap, 0.4 MG PO DAILY Prescribed by: DONNA RICHMOND on 05/18/212002 Review of Systems Review of Systems Constitutional: No chills, No fever EENTM: No blurred vision Respiratory: No cough, No short of breath Cardiovascular: No chest pain Gastrointestinal: No abdominal pain, No diarrhea; nausea; No vomiting Genitourinary: flank pain Musculoskeletal: no symptoms reported Skin: no symptoms reported Psychiatric/Neurological: No Symptoms Reported Endocrine: No Symptoms Reported Hematologic/Lymphatic: No Symptoms Reported All Other Systemes Reviewed Negative Unless Noted: Yes Past Szdcrml-Errbyx-Unvgoy Hx Patient Social History Tobacco Use?: No Use of E-Cig and/or Vaping dev: No Substance use?: No Alcohol Use?: No Pt feels they are or have been: No Seasonal Allergies Seasonal Allergies: No Past Medical History Surgery/Hospitalization HX: KIDNEY STONES HIGH CHOLESTEROL Surgeries: Yes (shoulder sx) Gallbladder Respiratory: No Cardiac: No Neurological: No Reproductive Disorders: No Genitourinary: No Gastrointestinal: No Musculoskeletal: No Endocrine: No HEENT: No Cancer: No Psychosocial: No Integumentary: No Blood Disorders: No Physical Exam Vital Signs Vital Signs - First Documented 05/19/21 08:43 Pulse 86 Resp 19 B/P (MAP) 154/91 (112) Pulse Ox 97 Capillary Refill : Height, Weight, BMI Height: 6'2.00" Weight: 223lbs. 0.0oz. 101.838106ok; 28.6 BMI Method:Stated General Appearance: WD/WN, mild distress HEENT: PERRL/EOMI, normal ENT inspection, pharynx normal Neck: non-tender, full range of motion, supple, normal inspection Cardiovascular: regular rate, rhythm, no edema, no murmur Respiratory: chest non-tender, lungs clear, normal breath sounds, no respiratory distress, no accessory muscle use Gastrointestinal: normal bowel sounds, non tender, soft; No distended, No guarding, No rebound Back: normal inspection, no vertebral tenderness, CVA tenderness (L) Extremities: normal range of motion, non-tender, normal inspection, no pedal edema, no calf tenderness, normal capillary refill Neurologic/Psychiatric: no motor/sensory deficits, alert, normal mood/affect Skin: normal color, warm/dry Lymphatic: no adenopathy Progress/Results/Core Measures Suspected Sepsis SIRS Temperature: Pulse: Respiratory Rate: Blood Pressure / Mean: Results/Orders My Orders Orders - GALILEO GARCIA MD Fentanyl Inj (Sublimaze Injection) (05/19/21 09:00) Ketorolac Injection (Toradol Injection) (05/19/21 09:00) Ondansetron Injection (Zofran Injectio (05/19/21 09:00) Lactated Ringers (Lr 1000 Ml Iv Solution (05/19/21 09:00) Fentanyl Inj (Sublimaze Injection) (05/19/21 08:50) Ketorolac Injection (Toradol Injection) (05/19/21 08:50) Abdomen/Kub 1view (05/19/21 09:04) Oxycodone/Apap 5/325mg Tablet (Percocet (05/19/21 10:30) Morphine Injection (Morphine Injection (05/19/21 10:38) Medications Given in ED Current Medications Medications Dose Ordered Sig/José Route Start Time Stop Time Status Last Admin Dose Admin Fentanyl Citrate 50 mcg ONCE ONCE IVP 05/19/21 09:00 05/19/21 09:01 DC 05/19/21 08:57 50 MCG Ketorolac Tromethamine 15 mg ONCE ONCE IVP 05/19/21 09:00 05/19/21 09:01 DC 05/19/21 08:57 15 MG Ondansetron HCl 4 mg ONCE ONCE IVP 05/19/21 09:00 05/19/21 09:01 DC 05/19/21 08:56 4 MG Vital Signs/I&O 05/19/21 08:43 Pulse 86 Resp 19 B/P (MAP) 154/91 (112) Pulse Ox 97 Capillary Refill : Progress Note : Progress Note 56-year-old male with above history coming in with left flank pain with known ureterolithiasis on the left. ABCs were intact and vitals were stable on presentation. He is in mild distress from pain. An IV was placed and is given IV fentanyl as well as Toradol for pain control. He was given Zofran for nausea and IV fluids given he has been taking and last p.o. We will get a KUB to assess if the stone might be obviously in transit. X-ray does show the stone is maybe slightly progressed on the left. On reassessment his pain is better, but did require some p.o. medications. I believe he is stable for discharge with outpatient follow-up with Dr. Lopez. He was sent home with strict return precautions. Diagnostic Imaging Diagonstic Imaging: Xray Plain Films/CT/US/NM/MRI: abdomen Comments [facility] [place], [place] NAME: EMILY PICHARDO [facility] REC#: [id number] PT STATUS: REG ER : 1965 PHYSICIAN: GALILEO GARCIA MD ADMIT DATE: 05/19/21/ER Draft Date of Exam:05/19/21 ABDOMEN/KUB 1VIEW INDICATION: Left-sided abdominal pain. TIME OF EXAM: 9:21 AM. COMPARISON: Correlation is made with the prior radiograph of one day earlier. FINDINGS: The bowel gas pattern is unremarkable. A calcific density overlies the upper pole right kidney. Numerous pelvic calcifications are present. There is a calcific density in the left hemipelvis which may reflect the distal left ureteric calculus noted on the CT of one day earlier. This has moved slightly since yesterday. No additional calculi are present. IMPRESSION: 1. Right renal calculus. 2. The distal left ureteric calculus noted on yesterday's CT shows very slight migration distally. This is still likely in the region of the distal left ureter. Dictated on workstation # [id number] Dict: 05/19/21 0923 Trans: 05/19/21 0928 [id number] Interpreted by: ANN-MARIE URBINA MD Electronically signed by: Departure Impression Primary Impression: Ureterolithiasis Disposition: HOME, SELF-CARE Condition: Stable Departure-Patient Inst. Decision time for Depature: 10:45 Referrals: EMILY HILL MD (PCP/Family) Primary Care Physician MIRANDA ERWIN MD Patient Instructions: Kidney Stone, Adult ED Add. Discharge Instructions: Please call Dr. Lopez to schedule an appointment as soon as possible. Take the Toradol which is also known as ketorolac every 8 hours for the next 4 days scheduled. Stop taking your ibuprofen when you are taking this. Take 1000 mg of Tylenol every 8 hours as well. Take the oxycodone on top of that if you continue to have pain. Do not take the hydrocodone on top of this. The Zofran is for nausea. Scripts Ketorolac Tromethamine (Ketorolac Tromethamine) 10 Mg Tablet 10 MG PO Q8H for 3 Days, #9 TAB Prov: GALILEO GARCIA MD 05/19/21 Oxycodone HCl (Oxycodone HCl) 5 Mg Tablet 5 MG PO Q6H PRN for PAIN-SEVERE (8-10) for 3 Days, #12 TAB Prov: GALILEO GARCIA MD 05/19/21 Work/School Note: Work Release Form Date Seen in the Emergency Department: May 19, 2021 Return to Work: May 21, 2021 Restrictions: No Restrictions GALILEO GARCIA MD May 19, 2021 09:07
--- NOTE | 2021-05-19 09:28 | Diagnostic Imaging Report ---
INDICATION: Left-sided abdominal pain. TIME OF EXAM: 9:21 AM. COMPARISON: Correlation is made with the prior radiograph of one day earlier. FINDINGS: The bowel gas pattern is unremarkable. A calcific density overlies the upper pole right kidney. Numerous pelvic calcifications are present. There is a calcific density in the left hemipelvis which may reflect the distal left ureteric calculus noted on the CT of one day earlier. This has moved slightly since yesterday. No additional calculi are present. IMPRESSION: 1. Right renal calculus. 2. The distal left ureteric calculus noted on yesterday's CT shows very slight migration distally. This is still likely in the region of the distal left ureter. Dictated by: Dictated on workstation # [id number]
[2021-05-19] MEDS ORDERED: KETO10TA PO (10:24)
[2021-05-19] MEDS ORDERED: OXYC5TAB PO (10:24)
[2021-05-19] MEDS ORDERED: oxyCODONE/APAP 5/325MG (PERCOCET 5) TABLET PO ONE (10:30)
[2021-05-19] MEDS ORDERED: morphine INJ 10 MG/ML 1ML (SYR OR VIAL) IVP STA (10:38)
[2021-05-19 11:03] VITALS: BP 150/87
== END 2021-05-19 11:03 | disposition home or self-care (01) ==
LOC: EDUNIT# 08:39 → ER 08:40
DX: N20.2 Calculus of kidney with calculus of ureter (principal); E78.5 Hyperlipidemia, unspecified; Z88.5 Allergy status to narcotic agent; Z79.899 Other long term (current) drug therapy
CPT/HCPCS: 74018

== ENCOUNTER 2021-05-21 04:20 | Emergency (ER) | payer BC ==
[~2021-05-21] VITALS: Ht 188 cm; Wt 95.0 kg
[2021-05-21] MEDS ORDERED: KETOROLAC 30 MG/ML VIAL IVP STA (04:36)
--- NOTE | 2021-05-21 04:43 | ED GU-Male ---
General Stated Complaint: LEFT SIDE PAIN Source: patient History of Present Illness Date Seen by Provider: May 21, 2021 Time Seen by Provider: 04:35 Initial Comments PT ARRIVES VIA POV FROM HOME C/O LEFT FLANK PAIN WAS SEEN HERE 05/18/21 AND 05/19/21 AND DX WITH 3 MM LEFT DISTAL URETERAL STONE AT FIRST VISIT HE WAS DISMISSED HOME WITH: IBUPROFEN, ZOFRAN, FLOMAX, HYDROCODONE AND BACTRIM AT SECOND VISIT HER WAS DISMISSED HOME WITH: OXYCODONE AND TORADOL HAS NOT TAKEN ANY PAIN MEDICATION SINCE YESTERDAY AT 0500 DID NOT HAVE ANY PAIN AGAIN UNTIL LAST NIGHT AROUND 1900, THEN GOT BAD AROUND 0100, WHEN PAIN RETURNED BUT HAS NOT TAKEN ANY MORE PAIN MEDICATION OF ANY KIND. STATES PAIN MEDICATION HAS CAUSED CONSTIPATION AND HE HAS NOT HAD A BM IN 3 DAYS, SO DID NOT WANT TO TAKE MORE PAIN MEDICATION HAS BEEN STRAINING HIS URINE AND HAS NOT SEEN ANY STONES HAS HAD NAUSEA, BUT HAS NOT TAKEN ANY ZOFRAN NO FEVER NO DIFFICULTY URINATING HAS AN APPOINTMENT WITH DR. ERWIN TODAY AT 2:00 PM. PCP: DR. HILL Allergies and Home Medications Allergies Coded Allergies: codeine (Unverified Allergy, Unknown, 10/03/12) Patient Home Medication List Home Medication List Reviewed: Yes Atorvastatin Calcium (Atorvastatin Calcium) 20 Mg Tablet, 20 MG PO DAILY, (Reported) Entered as Reported by: YOHANNES TILLMAN on 05/20/18 1231 Hydrocodone/Acetaminophen (Hydrocodone-Acetamin 5-325 mg) 1 Each Tablet, 1 TAB PO Q4H PRN for PAIN-MODERATE (5-7) Prescribed by: DONNA RICHMOND on 05/18/212002 Ibuprofen (Ibuprofen) 800 Mg Tablet, 800 MG PO Q8H PRN for PAIN Prescribed by: DONNA RICHMOND on 05/18/212002 Ketorolac Tromethamine (Ketorolac Tromethamine) 10 Mg Tablet, 10 MG PO Q8H Prescribed by: GALILEO GARCIA on 05/19/21 1024 Ondansetron (Ondansetron Odt) 8 Mg Tab.rapdis, 8 MG PO Q6H PRN for NAUSEA/VOMITING Prescribed by: DONNA RICHMOND on 05/18/212035 Oxycodone HCl (Oxycodone HCl) 5 Mg Tablet, 5 MG PO Q6H PRN for PAIN-SEVERE (8- 10) Prescribed by: GALILEO GARCIA on 05/19/21 1025 Sulfamethoxazole/Trimethoprim (Bactrim Ds Tablet) 1 Each Tablet, 1 EACH PO BID Prescribed by: DONNA RICHMOND on 05/18/212002 Tamsulosin HCl (Flomax) 0.4 Mg Cap, 0.4 MG PO DAILY Prescribed by: DONNA RICHMOND on 05/18/212002 Review of Systems Review of Systems Constitutional: no symptoms reported Respiratory: no symptoms reported Cardiovascular: no symptoms reported Gastrointestinal: see HPI Genitourinary: see HPI Musculoskeletal: see HPI Skin: no symptoms reported Psychiatric/Neurological: No Symptoms Reported Endocrine: No Symptoms Reported Past Mwxphlc-Ecgssb-Gtxvut Hx Seasonal Allergies Seasonal Allergies: No Past Medical History Surgery/Hospitalization HX: KIDNEY STONES HIGH CHOLESTEROL Surgeries: Yes (shoulder sx) Gallbladder Respiratory: No Cardiac: Yes High Cholesterol Neurological: No Reproductive Disorders: No Genitourinary: Yes Kidney Stones Gastrointestinal: No Musculoskeletal: No Endocrine: No HEENT: No Cancer: No Psychosocial: No Integumentary: No Blood Disorders: No Physical Exam Vital Signs Vital Signs - First Documented 05/21/21 04:34 Temp 36.9 Pulse 96 Resp 18 B/P (MAP) 145/85 (105) Pulse Ox 97 O2 Delivery Room Air Capillary Refill : Height, Weight, BMI Height: 6'2.00" Weight: 223lbs. 0.0oz. 101.019336gt; 26.00 BMI Method:Stated General Appearance: WD/WN, other (LOOKS UNCOMFORTABLE--CAN'T SIT OR STAND STILL, LEANING OVER SIDE OF BED, ETC. ) Cardiovascular: regular rate, rhythm, no murmur Respiratory: normal breath sounds Gastrointestinal: normal bowel sounds, non tender, soft Back: no vertebral tenderness, CVA tenderness (L) Extremities: normal inspection Neurologic/Psychiatric: no motor/sensory deficits, alert, oriented x 3 Skin: normal color, warm/dry; No rash Progress/Results/Core Measures Suspected Sepsis SIRS Temperature: Pulse: Respiratory Rate: Blood Pressure / Mean: Results/Orders Lab Results Laboratory Tests Test 05/21/21 04:35 Range/Units Urine Color YELLOW Urine Clarity CLEAR Urine pH 5.5 5-9 Urine Specific [place] 1.025 H 1.016-1.022 Urine Protein NEGATIVE NEGATIVE Urine Glucose (UA) NEGATIVE NEGATIVE Urine Ketones NEGATIVE NEGATIVE Urine Nitrite NEGATIVE NEGATIVE Urine Bilirubin NEGATIVE NEGATIVE Urine Urobilinogen 0.2 < = 1.0 MG/DL Urine Leukocyte Esterase 1+ H NEGATIVE Urine RBC (Auto) 3+ H NEGATIVE Urine RBC 25-50 H /HPF Urine WBC 5-10 H /HPF Urine Squamous Epithelial Cells RARE /HPF Urine Crystals NONE /LPF Urine Bacteria TRACE /HPF Urine Casts NONE /LPF Urine Mucus NEGATIVE /LPF Urine Yeast FEW H /HPF Urine Culture Indicated NO My Orders Orders - RAE PORTILLO DO Ed Iv/Invasive Line Start (05/21/21 04:34) Ua Culture If Indicated (05/21/21 04:34) Abdomen/Kub 1view (05/21/21 04:34) Ed Iv/Invasive Line Start (05/21/21 04:36) Lactated Ringers (Lr 1000 Ml Iv Solution (05/21/21 04:45) Ketorolac Injection (Toradol Injection) (05/21/21 04:36) Ondansetron Injection (Zofran Injectio (05/21/21 05:00) Urine Culture (05/21/21 05:28) Orphenadrine Inj (Ed Only) (Norflex Inje (05/21/21 06:00) Medications Given in ED Current Medications Medications Dose Ordered Sig/José Route Start Time Stop Time Status Last Admin Dose Admin Lactated Ringer's 1,000 ml @ 0 mls/hr Q0M ONCE IV 05/21/21 04:45 05/21/21 04:46 DC 05/21/21 05:16 0 MLS/HR Ondansetron HCl 4 mg ONCE ONCE IVP 05/21/21 05:00 05/21/21 05:01 DC 05/21/21 05:15 4 MG Vital Signs/I&O 05/21/21 04:34 Temp 36.9 Pulse 96 Resp 18 B/P (MAP) 145/85 (105) Pulse Ox 97 O2 Delivery Room Air Capillary Refill : Progress Note : Progress Note GIVEN IV FLUIDS, TORADOL AND ZOFRAN PAIN DOWN TO A 5/10 WITH TORADOL; PT NOW RESTING/LAYING OUTSTRETCHED ON ER CART GIVEN NORFLEX AND PAIN CONTINUES TO DECLINE Diagnostic Imaging Comments KUB--PER RADIOLOGIST REPORT AT 0557 FINDINGS: KUB shows normal stool and gas pattern. The stomach and small bowel are not distended. There is no organomegaly or pathologic calcification. There are phleboliths in the pelvis. IMPRESSION: Negative KUB. Reviewed: Reviewed by Me Departure Impression Primary Impression: Left ureteral calculus Additional Impressions: Urinary tract infection Constipation Disposition: HOME, SELF-CARE Condition: Stable Departure-Patient Inst. Referrals: EMILY HILL MD (PCP/Family) Primary Care Physician MIRANDA ERWIN MD Patient Instructions: Kidney Stones (DC), Urinary Tract Infection, Adult (DC), How to Strain Your Urine Add. Discharge Instructions: CONTINUE TO STRAIN ALL URINE CONTINUE FLOMAX DAILY CONTINUE BACTRIM DAILY TAKE ZOFRAN NEEDED FOR NAUSEA TAKE KETOROLAC EVERY 6-8 HOURS FOR PAIN TAKE OXYCODONE EVERY 4 HOURS NEEDED FOR PAIN TAKE MIRALAX EVERY 1-2 HOURS UNTIL YOU HAVE BM, THEN USE DAILY WHILE YOU ARE ON PAIN MEDICATIONS RAE PORTILLO DO May 21, 2021 04:43
[2021-05-21] MEDS ORDERED: LACTATED RINGERS 1,000 ML IV ONE (04:45)
[2021-05-21] MEDS ORDERED: ONDANSETRON 4 MG/2 ML (SDV) Z0FRAN IVP ONE (05:00)
[2021-05-21 05:05] LABS: BILIRUBIN,URINE NEGATIVE (NEGATIVE); CLARITY,URINE CLEAR; COLOR,URINE YELLOW; GLUCOSE, URINE (UA) NEGATIVE (NEGATIVE); KETONES,URINE NEGATIVE (NEGATIVE); LEUKOCYTE ESTERASE ,URINE 1+ (NEGATIVE); NITRITE,URINE NEGATIVE (NEGATIVE); PH,URINE 5.5 (5-9); PROTEIN,URINE NEGATIVE (NEGATIVE)
[2021-05-21 05:18] LABS: BACTERIA,URINE TRACE /HPF; RBC,URINE 25-50 /HPF; SQUAMOUS EPITHELIAL CELL,UR RARE /HPF; YEAST,URINE FEW /HPF
--- NOTE | 2021-05-21 05:53 | Diagnostic Imaging Report ---
INDICATION: Abdominal pain. FINDINGS: KUB shows normal stool and gas pattern. The stomach and small bowel are not distended. There is no organomegaly or pathologic calcification. There are phleboliths in the pelvis. IMPRESSION: Negative KUB. Dictated by: Dictated on workstation # [id number]
[2021-05-21] MEDS ORDERED: ORPHENADRINE 60 MG/2 ML (NORFLEX) AMP (ED ONLY) IV ONE (06:00)
[2021-05-21 06:39] VITALS: BP 147/82
== END 2021-05-21 06:38 | disposition home or self-care (01) ==
LOC: EDUNIT# 04:20 → ER 04:22
DX: N20.1 Calculus of ureter (principal); N39.0 Urinary tract infection, site not specified; K59.00 Constipation, unspecified; E78.00 Pure hypercholesterolemia, unspecified; Z79.899 Other long term (current) drug therapy
CPT/HCPCS: 74018; 81000; 87088

== ENCOUNTER → 2021-05-21 | Outpatient (CLI) | payer BC ==
[~2021-05-21] MED LIST changes: +KETO10TA PO; +OXYC5TAB PO
--- NOTE | 2021-05-21 13:37 | Diagnostic Imaging Report ---
INDICATION: Flank pain. EXAMINATION: KUB at 1:19 PM. FINDINGS: The bowel gas pattern is normal. There is a moderate amount of stool in the ascending colon and hepatic flexure of the colon. There is a 4 mm calculus projecting over the right kidney. There are some small calcifications in the pelvis which are mostly phleboliths. A left ureteral calculus could not be excluded. IMPRESSION: Right nephrolithiasis. A small distal left ureteral calculus could not be excluded. Dictated by: Dictated on workstation # [id number]
== END ==
LOC: RAD 13:07
PROVIDERS: ATTEND Urology
DX: N20.2 Calculus of kidney with calculus of ureter (principal)
CPT/HCPCS: 74018

== ENCOUNTER 2021-05-23 05:39 | Outpatient (CLI) | payer BC ==
[~2021-05-23] VITALS: Ht 188 cm; Wt 95.5 kg
== END 2021-05-23 14:29 | disposition home or self-care (01) ==
LOC: PREOP 05:39
PROVIDERS: ATTEND Urology
DX: Z01.818 Encounter for other preprocedural examination (principal)

== ENCOUNTER 2021-05-27 07:12 | Observation (INO) | payer BC ==
[~2021-05-27] VITALS: Ht 188 cm; Wt 95.5 kg
[2021-05-27] VITALS (12 sets, daily range): BP systolic 117–164; BP diastolic 78–109
[2021-05-27] MEDS ORDERED: cefTRIAXone 1 GM PRE-MIX 50 ML IV ONE ×2 (07:45→07:48)
[2021-05-27] MEDS: LACTATED RINGERS 1,000 ML IV PRN ×2 (07:50→10:29)
--- NOTE | 2021-05-27 08:01 | Progress Note-Pre Operative ---
Pre-Operative Progress Note H&P Reviewed The H&P was reviewed, patient examined and no changes noted. Date Seen by Provider: May 27, 2021 Time Seen by Provider: 08:00 Date H&P Reviewed: May 27, 2021 Time H&P Reviewed: 08:00 Pre-Operative Diagnosis: LT DISTAL URETERAL AND RIGHT RENAL STONES MIRANDA ERWIN MD May 27, 2021 08:01
--- NOTE | 2021-05-27 08:18 | Diagnostic Imaging Report ---
EXAMINATION: Abdomen 1 view HISTORY: ESWL COMPARISON: 05/21/2021 FINDINGS: There is a moderate amount of gas and stool throughout the colon. Nonobstructive bowel gas pattern. There is a 0.8 cm calcification overlying the right kidney. Stable calcifications, likely phleboliths within the pelvis. Right upper quadrant cholecystectomy clips are present. The lung bases are clear. The osseous structures are intact. IMPRESSION: Right renal calculus measuring 0.8 cm. Dictated by: Dictated on workstation # [id number]
[2021-05-27] MEDS ORDERED: fentaNYL INJ 100 MCG/2 ML AMP ONE ×2 (09:05→11:57)
[2021-05-27] MEDS ORDERED: SEVOFLURANE (ULTANE) 15 ML INHAL SOLN ONE ×3 (09:05→10:34)
[2021-05-27] MEDS ORDERED: proPOfol 200 MG/20 ML (DIPRIVAN) VIAL IV ONE (09:05)
[2021-05-27] MEDS ORDERED: ONDANSETRON 4 MG/2 ML (SDV) Z0FRAN ONE (09:05)
[2021-05-27] MEDS ORDERED: LIDOCAINE PF 2% 5 ML (XYLOCAINE) VIAL ONE (09:05)
[2021-05-27] MEDS ORDERED: MIDAZOLAM 2 MG/2 ML (VERSED) VIAL ONE (09:05)
[2021-05-27] MEDS ORDERED: ROCURONIUM 50 MG/5 ML (ZEMURON) VIAL IV ONE (09:08)
--- NOTE | 2021-05-27 09:14 | Progress Note-Post Operative ---
Post-Operative Progess Note Surgeon (s)/Drag Car Racer (s) Surgeon MIRANDA ERWNI MD Drag Car Racer: NONE Pre-Operative Diagnosis LT DISTAL URETERAL AND RIGHT RENAL STONES Post-Operative Diagnosis SAME Procedure & Operative Findings Date of Procedure 05/27/21 Procedure Performed/Findings LT URETEROSCOPY AND LT RETROGRADE UROGRAM AND RT ESWL Anesthesia Type GENERAL Estimated Blood Loss Estimated blood loss (mL): NONE Specimens/Packing Specimens Removed NONE Packing: NONE MIRANDA ERWIN MD May 27, 2021 09:14
--- NOTE | 2021-05-27 09:16 | Discharge Inst-Urology ---
Discharge Inst-Urology Reconcile Patient Problems Problems Reviewed?: Yes Final Diagnosis LT URETERAL AND RT RENAL STONES Patient Instructions/Follow Up Plan/Assessment/Instructions Please make appointment to been seen in office Friday 06/02. KUB prior to it KUB on way home Post ESWL instructions Increase oral fluids for 48 hours and then as needed. Diet and Activity as tolerated. If questions or concerns contact your physician Or seek help at emergency department. MIRANDA ERWIN MD May 27, 2021 09:16
[2021-05-27] MEDS ORDERED: GLYCOPYRROLATE 0.2 MG/ML (ROBINUL) 2 ML VIAL ONE (10:07)
[2021-05-27] MEDS ORDERED: NEOSTIGMINE 3 MG/3 ML VIAL ONE (10:07)
[2021-05-27] MEDS ORDERED: KETOROLAC 30 MG/ML VIAL ONE (10:29)
[2021-05-27] MEDS ORDERED: FUROSEMIDE 40 MG/4 ML INJ (LASIX) ONE (10:29)
[2021-05-27] MEDS ORDERED: TMSL.4C PO (10:48)
[2021-05-27] MEDS ORDERED: SULF1TAB38 PO (10:48)
[2021-05-27] MEDS ORDERED: KETO10TA PO (10:52)
[2021-05-27] MEDS ORDERED: PHEN-640 PO (10:52)
[2021-05-27] MEDS ORDERED: HYDROmorphone 2 MG/ML VIAL (DILAUDID) IV ONE (11:00)
[2021-05-27] MEDS ORDERED: ONDANSETRON 4 MG/2 ML (SDV) Z0FRAN IVP PRN (11:00)
[2021-05-27] MEDS ORDERED: PHENAZOPYRIDINE 100 MG (PYRIDIUM) TABLET ONE (11:48)
--- NOTE | 2021-05-27 11:48 | Anesthesia-General Post-Op ---
General Patient Condition Mental Status/LOC: Same as Preop Cardiovascular: Satisfactory Nausea/Vomiting: Absent Respiratory: Satisfactory Pain: Controlled Complications: Absent Post Op Complications Complications None Follow Up Care/Instructions Patient Instructions None needed. Anesthesia/Patient Condition Patient Condition Patient is doing well, no complaints, stable vital signs, no apparent adverse anesthesia problems. No complications reported per nursing. [place] [facility] [place]: Yes SNEHA TRAN CRNA May 27, 2021 11:48
[2021-05-27] MEDS ORDERED: fentaNYL INJ 100 MCG/2 ML AMP IVP ONE (12:00)
[2021-05-27] MEDS ORDERED: PHENAZOPYRIDINE 100 MG (PYRIDIUM) TABLET PO ONE (12:00)
--- NOTE | 2021-05-27 13:40 | Diagnostic Imaging Report ---
PROCEDURE: CT abdomen and pelvis without contrast. TECHNIQUE: Multiple contiguous axial images were obtained through the abdomen and pelvis without the use of intravenous contrast. Auto Exposure Controls were utilized during the CT exam to meet ALARA standards for radiation dose reduction. INDICATION: Lithotripsy earlier today, now complaining of right testicular pain and right flank pain. Correlation is made with KUB performed earlier today as well as prior CT from 05/18/2021. FINDINGS: The lung bases are clear. The liver is unremarkable. Gallbladder is surgically absent. There is no biliary ductal dilatation. The pancreas and spleen are unremarkable. No adrenal mass is detected. Since prior study, there has been some fragmentation of the calculus noted in the right kidney on prior imaging. There is a tiny calcific fragment now located in the distal right ureter just above the UVJ. This measures 1 to 2 mm in size. No bladder calculi are seen. Left ureter is unremarkable. Aorta is nonaneurysmal. Bowel loops are normal caliber. There is no free fluid or fluid collection. Prostate is unremarkable. IMPRESSION: Fragmentation of previously noted right renal calculus, status post ESWL. There is a tiny fragment in the distal right ureter producing very mild hydroureteronephrosis. No other significant abnormality is seen. Dictated by: Dictated on workstation # [id number]
[2021-05-27] MEDS ORDERED: ONDANSETRON 4 MG/2 ML (SDV) Z0FRAN IVP ONE (13:45)
[2021-05-27] MEDS ORDERED: morphine INJ 10 MG/ML 1ML (SYR OR VIAL) IVP STA (14:07)
[2021-05-27] MEDS ORDERED: morphine INJ 10 MG/ML 1ML (SYR OR VIAL) ONE (14:09)
[2021-05-27] MEDS ORDERED: morphine PCA 100 MG/100 ML BAG IV PRN (15:00)
[2021-05-27] MEDS: ALPRAZolam 0.5 MG (XANAX) TAB PO PRN (16:28)
[2021-05-27] MEDS: LACTATED RINGERS 1,000 ML IV SCH (16:29)
[2021-05-27] MEDS: ONDANSETRON 4 MG/2 ML (SDV) Z0FRAN IVP PRN ×2 (16:35→22:17)
--- NOTE | 2021-05-27 16:37 | OPERATIVE REPORT ---
DATE OF SERVICE: 05/27/2021 PREOPERATIVE DIAGNOSIS: Left distal ureteral stone and right renal stone. POSTOPERATIVE DIAGNOSIS: Left distal ureteral stone and right renal stone. OPERATION PERFORMED: Left ureteroscopy with retrograde urogram and right ESWL. SURGEON: Marky Erwin MD ANESTHESIA: General. COMPLICATIONS: None. DESCRIPTION OF PROCEDURE: Under satisfactory general anesthesia, the patient in lithotomy position, genitalia were prepped and draped in the usual sterile fashion. Cystoscope was introduced under vision. The anterior urethra was normal. The prostate was slightly enlarged with a median bar. Bladder revealed some trabeculations with ureteric orifices displaced upward and laterally. No foreign body, bladder tumor or stone visualized. Using the foroblique lens, I dilated the left ureteral orifice intramural portion to accommodate a 6.9 Wolof semi-rigid ureteroscope. I was able to go just a few centimeters distally. There were no stones visualized. I removed the ureteroscope and passed a ureteral cone-tipped catheter into the orifice intramural portion and injected contrast several times. There was no filling defect, no hydro, complete and quick emptying of the contrast with no problem. It is also to mention when I dilated the orifice intramural portion, I went up the ureter with the catheter. There was no resistance, no feeling of any stone. Having secured the left side, I emptied the bladder with the cystoscope, removed the cystoscope. The patient was moved to the ESWL bed supine. Right renal stone was localized and shocks were delivered at kV of 6, a total of 2500 shocks completely fragmented the stone that was not visualized anymore. The patient received 30 mg of Toradol and 40 mg of Lasix IV at the end of the procedure. He tolerated the procedure and anesthesia well and was sent to recovery room in a stable condition. Job ID: [id number] DocumentID: [id number] Dictated Date: 05/27/2021 10:32:56 Air Tank Assembler Date: 05/27/2021 15:13:01 Dictated By: MARKY ERWIN MD
[2021-05-27 23:41] LABS: BASOPHILS % (AUTO) 0 % (0-10); EOSINOPHILS % (AUTO) 0 % (0-10); HEMATOCRIT 39 % (40-54); HEMOGLOBIN 13.5 g/dL (13.3-17.7); LYMPHOCYTES # (AUTO) 0.8 10^3/uL (1.0-4.0); LYMPHOCYTES % (AUTO) 9 % (12-44); MEAN CORPUSCULAR HEMOGLOBIN 32 pg (25-34); MEAN CORPUSCULAR HGB CONC 35 g/dL (32-36); MEAN CORPUSCULAR VOLUME 92 fL (80-99); MEAN PLATELET VOLUME 9.2 fL (9.0-12.2); MONOCYTES # (AUTO) 0.5 10^3/uL (0.0-1.0); MONOCYTES % (AUTO) 6 % (0-12); NEUTROPHILS # (AUTO) 7.1 10^3/uL (1.8-7.8); NEUTROPHILS % (AUTO) 85 % (42-75); PLATELET COUNT 360 10^3/uL (130-400); WHITE BLOOD COUNT 8.4 10^3/uL (4.3-11.0)
[2021-05-27 23:52] LABS: POTASSIUM 4.7 MMOL/L (3.6-5.0)
[2021-05-27 23:53] LABS: CALCIUM 8.8 MG/DL (8.5-10.1)
[2021-05-27 23:57] LABS: CREATININE SERUM 1.81 MG/DL (0.60-1.30)
[2021-05-28 00:23] VITALS: BP 135/79
[2021-05-28] MEDS: LACTATED RINGERS 1,000 ML IV SCH ×3 (01:00→11:42)
[2021-05-28] MEDS: KETOROLAC 30 MG/ML VIAL IVP PRN ×2 (01:42→08:21)
[2021-05-28] MEDS: ONDANSETRON 4 MG/2 ML (SDV) Z0FRAN IVP PRN ×2 (02:38→06:33)
[2021-05-28] MEDS ORDERED: LIDOCAINE UROJET 2% GEL 10 ML PKG ONE (03:12)
[2021-05-28 03:49] VITALS: BP 143/79
[2021-05-28 07:26] LABS: BASOPHILS % (AUTO) 0 % (0-10); EOSINOPHILS % (AUTO) 0 % (0-10); HEMATOCRIT 41 % (40-54); HEMOGLOBIN 14.2 g/dL (13.3-17.7); LYMPHOCYTES # (AUTO) 1.3 10^3/uL (1.0-4.0); LYMPHOCYTES % (AUTO) 11 % (12-44); MEAN CORPUSCULAR HEMOGLOBIN 32 pg (25-34); MEAN CORPUSCULAR HGB CONC 34 g/dL (32-36); MEAN CORPUSCULAR VOLUME 93 fL (80-99); MEAN PLATELET VOLUME 9.2 fL (9.0-12.2); MONOCYTES # (AUTO) 1.1 10^3/uL (0.0-1.0); MONOCYTES % (AUTO) 9 % (0-12); NEUTROPHILS # (AUTO) 9.6 10^3/uL (1.8-7.8); NEUTROPHILS % (AUTO) 80 % (42-75); PLATELET COUNT 389 10^3/uL (130-400)
[2021-05-28 07:48] LABS: ALBUMIN 4.3 GM/DL (3.2-4.5); BILIRUBIN,TOTAL 0.7 MG/DL (0.1-1.0); CALCIUM 8.9 MG/DL (8.5-10.1); POTASSIUM 4.5 MMOL/L (3.6-5.0); TOTAL PROTEIN 7.9 GM/DL (6.4-8.2)
[2021-05-28 08:00] VITALS: BP 132/77
[2021-05-28] MEDS: ALPRAZolam 0.5 MG (XANAX) TAB PO PRN (08:21)
--- NOTE | 2021-05-28 08:32 | Diagnostic Imaging Report ---
EXAMINATION: Abdomen, 1 view. HISTORY: Lithotripsy. COMPARISON: 05/27/2021. FINDINGS: The previously seen calcification projecting over the right kidney is no longer apparent. There are cholecystectomy clips. Phleboliths are present in the pelvis. No dilated bowel or free air. IMPRESSION: The previously seen calcification projecting over the right kidney is no longer apparent. Dictated by: Dictated on workstation # [id number]
--- NOTE | 2021-05-28 09:23 | Progress Note - Urology ---
Progress Note-Urology Progress Notes/Assess & Plan Progress/Assessment & Plan AFEBRILE, VSS. MORE COMFORTABLE SINCE SOSA INSERTED. STILL NAUSEATED WITH VOMITING. LABS NOTED. KUB GOOD RESULTS. PLAN COMPAZINE AND RE EVALUATE AROUND 2PM Final Diagnosis RT RENAL STONE POST ESWL WITH UNCONTROLLED PAIN MIRANDA ERWIN MD May 28, 2021 09:23
[2021-05-28] MEDS ORDERED: PROCHLORPERAZINE 10 MG/2ML INJ (COMPAZINE) IV ONE (09:30)
[2021-05-28 12:00] VITALS: BP 137/80
--- NOTE | 2021-05-28 12:58 | Consultation - Hospitalist ---
GALILEO MELGAR 05/28/21 1258: HPI History of Present Illness: HPI/Chief Complaint CC: Severe Pain s/p ESWL with Dr. Stauffer on 05/27/21 HPI: Morgan Quinn is 56yoM who presented on 05/27/[address] Stauffer for left distal ureteral stones and right renal stones. Following the procedure, the patient experienced excruciating pain and noticed red urine. He was admitted overnight for pain management and evaluation. Follow-up KUB and CT abdomen/pe lvis reviewed by Dr. Stauffer and managing. Source: patient, RN/MD Exam Limitations: no limitations Date Seen 05/28/21 Attending Physician Morgan Mcfadden MD Referring Physician Dr. Marky Stauffer Date of Admission May 27, 2021 at 14:53 Home Medications & Allergies Home Medications Reviewed patient Home Medication Reconciliation performed by pharmacy medication reconciliations reliability technicians and/or nursing. Patients Allergies have been reviewed. Allergies Allergies Coded Allergies amoxicillin (Verified Allergy, Unknown, Diarrhea, 05/27/21) codeine (Unverified Allergy, Unknown, 05/27/21) Past Qngyifg-Zuowdg-Cgties Hx Patient Social History Smoking Status: Never a Smoker Immunizations Up To Date Date of Influenza Vaccine: Jan 17, 2021 First/Initial COVID19 Vaccinat: 2020 Second COVID19 Vaccination Andre: APR 2020 Seasonal Allergies Seasonal Allergies: No Current Status Primary Language: Irish Past Medical History Surgeries: Gallbladder Currently Using CPAP: No Currently Using BIPAP: No High Cholesterol Sexually Transmitted Disease: No HIV/AIDS: No Kidney Stones Loss of Vision: Denies Hearing Impairment: Denies Did You Recieve Any Treatments: No Blood Disorders: No Review of Systems Constitutional: no symptoms reported EENTM: no symptoms reported Respiratory: no symptoms reported Cardiovascular: no symptoms reported Gastrointestinal: nausea, vomiting Genitourinary: dysuria, frequency, hematuria, pain Musculoskeletal: no symptoms reported Skin: no symptoms reported Psychiatric/Neurological: No Symptoms Reported Physical Exam Physical Exam Vital Signs Vital Signs - First Documented 05/27/21 07:18 Temp 36.5 Pulse 77 Resp 20 B/P (MAP) 137/90 (106) Pulse Ox 97 O2 Delivery Room Air Capillary Refill : Height, Weight, BMI Height: 6'2.00" Weight: 223lbs. 0.0oz. 101.047130lf; 27.02 BMI Method:Stated General Appearance: Mild Distress (appears in pain) Eyes: Bilateral Eye Normal Inspection, Bilateral Eye PERRL, Bilateral Eye EOMI HEENT: PERRL/EOMI, Pharynx Normal, Moist Mucous Membranes Neck: Full Range of Motion, Normal Inspection, Non Tender, Supple Respiratory: Chest Non Tender, Lungs Clear, Normal Breath Sounds, No Accessory Muscle Use, No Respiratory Distress Cardiovascular: Regular Rate, Rhythm, No Edema, No Gallop, No JVD, No Murmur, Normal Peripheral Pulses Gastrointestinal: Normal Bowel Sounds, No Organomegaly, Non Tender, Soft Rectal: Deferred Back: Normal Inspection Extremity: Normal Capillary Refill, Normal Inspection, Normal Range of Motion, No Pedal Edema Neurologic/Psychiatric: Alert, Oriented x3, No Motor/Sensory Deficits, Normal Mood/Affect, residency program coordinator II-XII Norm as Tested Skin: Normal Color, Warm/Dry Results Results/Procedures Labs Laboratory Tests 05/27/21 23:36 05/28/21 07:06 Patient resulted labs reviewed. Imaging: Reviewed Imaging Report Assessment/Plan Assessment and Plan Assess & Plan/Chief Complaint Assessment: Acute Groin Pain s/p ESWL Right Renal Nephrolithiasis Nausea Vomiting Plan: Pain management - monitoring Toradol 2/2 elevated Cr Compazine Appreciate consultation from Dr. Stauffer Diagnosis/Problems Diagnosis/Problems (1) PAIN CONTROL POST ESWL Status: Acute (2) Right renal stone Status: Acute (3) Ureterolithiasis Status: Acute MONSERRAT FONG DO 05/29/21 0533: HPI History of Present Illness: HPI/Chief Complaint CC: Flank pain from lithotripsy HPI: 56 [facility] pt of Dr. Sharma who presented to the med surg floor due to incapacitating pain following lithotripsy by Dr. Stauffer. Currently he is doing much better. He reports less nausea. He is receiving IV pain medication. Creatinine is 2.0 so decreased the Toradol to 15 mg Q 6 hours. Source: patient Exam Limitations: no limitations Past Semhana-Xhdfmo-Ezxjtl Hx Patient Social History Marrital Status: Employed/Student: employed Smoking Status: Never a Smoker Review of Systems Constitutional: see HPI, malaise, weakness EENTM: no symptoms reported Respiratory: no symptoms reported Cardiovascular: no symptoms reported Gastrointestinal: nausea, vomiting Musculoskeletal: back pain Skin: no symptoms reported Psychiatric/Neurological: No Symptoms Reported All Other Systems Reviewed Negative Unless Noted: Yes Physical Exam Physical Exam General Appearance: WD/WN, Anxious, Mild Distress (appears in pain) Eyes: Bilateral Eye Normal Inspection, Bilateral Eye PERRL HEENT: PERRL/EOMI, Normal ENT Inspection, Pharynx Normal Neck: Full Range of Motion, Normal Inspection, Non Tender, Supple, Carotid Bruit Respiratory: Chest Non Tender, Lungs Clear, Normal Breath Sounds, No Accessory Muscle Use, No Respiratory Distress Cardiovascular: Regular Rate, Rhythm, No Edema, No Gallop, No JVD, No Murmur, Normal Peripheral Pulses Gastrointestinal: Normal Bowel Sounds, No Organomegaly, No Pulsatile Mass, Non Tender, Soft Back: Normal Inspection, No CVA Tenderness, No Vertebral Tenderness Extremity: Normal Capillary Refill, Normal Inspection, Normal Range of Motion, Non Tender, No Calf Tenderness, No Pedal Edema Neurologic/Psychiatric: Alert, Oriented x3, No Motor/Sensory Deficits, Normal Mood/Affect Skin: Normal Color, Warm/Dry Lymphatic: No Adenopathy Assessment/Plan Assessment and Plan Assess & Plan/Chief Complaint Assessment: Refractory flank pain status post ESWL Acute kidney injury Right kidney stones Plan: Pain control Discharge planning per urology Supervisory-Addendum Brief Verification & Attestation Participated in pt care: history, MDM, physical Personally performed: exam, history, MDM, supervision of care Care discussed with: Medical Student Procedures: n/a Results interpretation: Verified all documentation Verification and Attestation of Medical Student E/M Service A medical student performed and documented this service in my presence. I reviewed and verified all information documented by the medical student and made modifications to such information, when appropriate. I personally performed the physical exam and medical decision making. Monserrat Fong, May 29, 2021,05:32 GALILEO MELGAR May 28, 2021 12:58 MONSERRAT FONG DO May 29, 2021 05:33
[2021-05-28] MEDS ORDERED: PHENAZOPYRIDINE 100 MG (PYRIDIUM) TABLET PO ONE (14:15)
[2021-05-28] MEDS ORDERED: HYDROcodone/APAP 5 MG/325 MG (LORTAB) TAB PO PRN (14:15)
[2021-05-28 15:30] VITALS: BP 123/75
[2021-05-28] MEDS ORDERED: KETOROLAC 30 MG/ML VIAL IVP PRN (16:00)
== END 2021-05-28 18:53 | disposition home or self-care (01) ==
LOC: SDC 07:12 → 4TH 14:53
PROVIDERS: ADMIT Urology; ATTEND Internal Medicine
DX: N20.2 Calculus of kidney with calculus of ureter (principal); R31.29 Other microscopic hematuria
CPT/HCPCS: 36415; 74018; 74176; 76000; 80048; 80053; 85025; 87081; G0378

== ENCOUNTER 2022-07-06 05:36 | Inpatient (IN) | payer BC ==
[~2022-07-06] VITALS: Ht 188 cm; Wt 95.0 kg
[~2022-07-06 05:36] MED LIST changes: +PHEN-640 PO
[2022-07-06] MEDS ORDERED: ASPIRIN 81 MG CHEW (CHILDREN'S ASA) PO ONE (06:00)
[2022-07-06] MEDS ORDERED: NITROGLYCERIN 0.4 MG SL TABS BTL 25'S SL PRN ×2 (06:00→08:30)
[2022-07-06 06:20] LABS: BASOPHILS % (AUTO) 0 % (0-10); EOSINOPHILS # (AUTO) 0.2 10^3/uL (0.0-0.3); EOSINOPHILS % (AUTO) 3 % (0-10); HEMATOCRIT 43 % (40-54); HEMOGLOBIN 14.8 g/dL (13.3-17.7); LYMPHOCYTES # (AUTO) 3.2 10^3/uL (1.0-4.0); LYMPHOCYTES % (AUTO) 43 % (12-44); MEAN CORPUSCULAR HEMOGLOBIN 32 pg (25-34); MEAN CORPUSCULAR HGB CONC 35 g/dL (32-36); MEAN CORPUSCULAR VOLUME 91 fL (80-99); MEAN PLATELET VOLUME 9.4 fL (9.0-12.2); MONOCYTES # (AUTO) 0.8 10^3/uL (0.0-1.0); MONOCYTES % (AUTO) 10 % (0-12); NEUTROPHILS # (AUTO) 3.2 10^3/uL (1.8-7.8); NEUTROPHILS % (AUTO) 43 % (42-75); PLATELET COUNT 319 10^3/uL (130-400); WHITE BLOOD COUNT 7.4 10^3/uL (4.3-11.0)
[2022-07-06 06:23] LABS: INR 0.9 (0.8-1.4); PROTHROMBIN TIME PATIENT 12.7 SEC (12.2-14.7)
[2022-07-06 06:28] LABS: ALBUMIN 4.3 GM/DL (3.2-4.5); POTASSIUM 3.6 MMOL/L (3.6-5.0)
[2022-07-06 06:29] LABS: CALCIUM 8.8 MG/DL (8.5-10.1)
[2022-07-06 06:30] LABS: TOTAL PROTEIN 7.6 GM/DL (6.4-8.2)
[2022-07-06 06:32] LABS: BILIRUBIN,TOTAL 0.7 MG/DL (0.1-1.0)
[2022-07-06 06:34] LABS: CREATININE SERUM 1.27 MG/DL (0.60-1.30)
[2022-07-06 06:36] LABS: MAGNESIUM 1.8 MG/DL (1.6-2.4)
[2022-07-06 06:45] LABS: CREATINE KINASE MB 5.2 NG/ML (<6.6)
--- NOTE | 2022-07-06 06:47 | Diagnostic Imaging Report ---
INDICATION: Chest pain Portable chest 6:01 AM Heart size and pulmonary vascularity are normal. Lungs are clear. There are no effusions or pneumothoraces. IMPRESSION: Negative chest Dictated by: Dictated on workstation # [id number]
[2022-07-06] MEDS ORDERED: meTOproloL SUCCINATE 50 MG (TOPROL XL) TAB PO SCH (07:15)
[2022-07-06] MEDS ORDERED: CLOPIDOGREL 300 MG (PLAVIX) TABLET PO ONE (07:15)
[2022-07-06] MEDS ORDERED: ENOXAPARIN 100 MG/1 ML (LOVENOX) SYR SC ONE (07:15)
[2022-07-06 08:17] VITALS: BP 156/95
[2022-07-06] MEDS ORDERED: morphine INJ 4 MG/ML 1 ML (VIAL/SYRINGE) IVP PRN (08:30)
[2022-07-06] MEDS ORDERED: meTOproloL SUCCINATE 50 MG (TOPROL XL) TAB PO ONE (08:30)
[2022-07-06] MEDS ORDERED: ONDANSETRON 4 MG/2 ML (SDV) Z0FRAN IVP PRN (08:30)
--- NOTE | 2022-07-06 08:41 | History & Physical-Hospitalist ---
History of Present Illness HPI/Chief Complaint Patient is a 57-year-old male with past medical history of hyperlipidemia who presented to the emergency department due to chest pain. He states he has been out of town for spring and developed chest pain over the past few days but kept hoping that it would get better. He reports being more fatigued as well and a little nauseous. It worsened last night and he tried to go to sleep in hopes that he would sleep it off but he woke up at 4:30 in the morning with worsening chest pain. He states it is worse with exertion. He felt clammy and sick to his stomach and decided to seek evaluation in the emergency department. In the ER he was found to have an elevated troponin of 0.422 and is being admitted for further work-up. Source: patient, family Date Seen 07/06/22 Time Seen by a Provider: 08:15 Attending Physician Emily Sharma MD PCP Admitting Physician: Anyi Penn MD Attending Physician: Emily Sharma MD Referring Physician Date of Admission Jul 06, 2022 at 07:44 Home Medications & Allergies Home Medications Reviewed patient Home Medication Reconciliation performed by pharmacy medication reconciliations security system technician and/or nursing. Patients Allergies have been reviewed. Allergies Allergies Coded Allergies amoxicillin (Verified Allergy, Unknown, Diarrhea, 05/27/21) codeine (Unverified Allergy, Unknown, PT HAS TOLERATED MORPHINE, LORTAB, & DILAUDID IN PAST, 07/06/22) Past Xbltaeh-Mmbmpj-Tlspcn Hx Patient Social History Marrital Status: Tobacco Use?: No Smoking Status: Never a Smoker Smokeless Tobacco Frequency: Never a User Use of E-Cig and/or Vaping dev: No Substance use?: No Alcohol Use?: No Pt feels they are or have been: No Immunizations Up To Date Date of Influenza Vaccine: Jan 17, 2021 First/Initial COVID19 Vaccinat: 2020 Second COVID19 Vaccination Andre: APR 2020 Tetanus Booster (TDap): Unknown Seasonal Allergies Seasonal Allergies: No Current Status Advance Directives: No Communicates: Verbally Primary Language: Bolivian Preferred Spoken Language: Bolivian Is interpretation needed?: No Implanted or Applied Medical D: None Past Medical History Surgeries: Gallbladder Currently Using CPAP: No Currently Using BIPAP: No High Cholesterol Sexually Transmitted Disease: No HIV/AIDS: No Kidney Stones Loss of Vision: Denies Hearing Impairment: Denies Did You Recieve Any Treatments: No Blood Disorders: No Family Medical History Reviewed Nursing Family Hx Heart Disease, CAD Under 55 Years Old, CAD Over 55 Years Old Review of Systems Constitutional: see HPI Physical Exam Physical Exam Vital Signs Vital Signs - First Documented 07/06/22 05:42 Temp 36.2 Pulse 70 Resp 16 B/P (MAP) 152/96 (114) Pulse Ox 99 O2 Delivery Room Air Capillary Refill : Less Than 3 Seconds Height, Weight, BMI Height: 6'2.00" Weight: 223lbs. 0.0oz. 101.583599kt; 26.87 BMI Method:Stated General Appearance: No Apparent Distress, Mild Distress (appears uncomfortable but denies pain) Respiratory: Lungs Clear, No Respiratory Distress Cardiovascular: Regular Rate, Rhythm, No Murmur Gastrointestinal: Normal Bowel Sounds, Non Tender, Soft Extremity: No Calf Tenderness, No Pedal Edema, Other (absent leg jasmin from calf down ) Neurologic/Psychiatric: Alert, Oriented x3 Skin: Normal Color, Warm/Dry Results Results/Procedures Labs Patient resulted labs reviewed. Imaging: Reviewed Imaging Report Imaging [facility], [place] NAME: EMILY PICHARDO [facility] REC#: [id number] PT STATUS: REG ER : 1965 PHYSICIAN: RAE PORTILLO DO ADMIT DATE: 07/06/22/ER Signed Date of Exam:07/06/22 CHEST 1 VIEW, AP/PA ONLY INDICATION: Chest pain Portable chest 6:01 AM Heart size and pulmonary vascularity are normal. Lungs are clear. There are no effusions or pneumothoraces. IMPRESSION: Negative chest Dictated by: Dictated on workstation # [id number] Dict: 07/06/22 0640 Trans: 07/06/22 0659 CVB [id number] Interpreted by: GUNNAR ZAMORANO MD Electronically signed by: GUNNAR ZAMORANO MD 07/06/22 0659 Assessment/Plan Admission Diagnosis NSTEMI Admission Status: Inpatient Order (span 2 midnights) Reason for Inpatient Admission: see below Assessment and Plan NSTEMI Unstable Angina Symptoms concerning for cardiac etiology Troponin elevated Cardiology consulted, appreciate recs Discussed with MELA Miller for Dr Sanchez- likely will need cath Received Plavix, Metoprolol, ASA, and Lovenox in the ER Elevated BP BP in the 150s Trend with metoprolol on board and escalate if needed HLD Takes statin at home Will continue Check FLP GERD Resume protonix when able to take PO DVT ppx: Already received Lovenox Spoke with Dr Sanchez following cath and patient has multivessel disease. Dr Sanchez contacted [facility] and he was accepted for bypass evaluation. He was transferred there in stable condition. Diagnosis/Problems Diagnosis/Problems (1) NSTEMI (non-ST elevated myocardial infarction) Clinical Quality Measures AMI/AHF: ASA po Prior to arrival: No Copy Copies To 1: EMILY SHARMA MD, KATELYN M MD Jul 06, 2022 08:41
[2022-07-06] MEDS ORDERED: NS IV 1000 ML 1,000 ML ONE (08:49)
[2022-07-06] MEDS ORDERED: LIDOCAINE 1% INJ 20 ML VIAL ONE (08:49)
[2022-07-06] MEDS ORDERED: HEParin (CATH LAB) 2,000 ML IV ONE (08:49)
--- NOTE | 2022-07-06 08:57 | Consultation-Cardiology ---
HPI-Cardiology Cardiology Consultation: Date of Consultation 07/06/22 Time Seen by a Provider: 08:25 Date of Admission Attending Physician Morgan Sharma MD Admitting Physician Admitting Physician: Anyi Penn MD Attending Physician: Morgan Sharma MD Consulting Physician NIESHA SONG MD, MA, FACP, FACC, FSCAI, CCDS HPI: Chief Complaint: Chest discomfort 57 yo man with chest discomfort that initially started on 07/03/22, apparently brief but multiple recurrent episodes on 07/05/22, each lasting a few min, upper midsternal and L parasternal in location, moderate intensity, pressure-like, radiating to the back and shoulders, somewhat reminiscent of previous radicular pain for which he has had cervical spinal surgery. An episode awoke him at approx 4:30 am and was more intense than other episodes. Had resolved by the time he presented to the ER. Does not report palp or syncope. Has had mild cough, nonproductive. No shortness of breath. No swelling. No n/v/d Review of Systems-Cardiology Review of Systems Constitutional: No weight loss, No weight gain Eyes: No vision change Ears/Nose/Throat: No ear discharge, No nasal drainage, No recent hearing loss Respiratory: As described under HPI Cardiovascular: As described under HPI Gastrointestinal: As described under HPI Genitourinary: No dysuria, No hematuria, No urine frequency changes Musculoskeletal: back pain Skin: No rash, No ulcerations Psychiatric/Neurological: No seizure, No focal weakness, No syncope Hematologic: No bleeding abnormalities WBF-Dwclim-Kchrgt Hx Patient Social History Marrital Status: Smoking Status: Never a Smoker 2nd Hand Smoke Exposure: No Have you traveled recently?: No Alcohol Use?: No Pt feels they are or have been: No Immunizations Up To Date Date of Influenza Vaccine: Jan 17, 2021 Past Medical History PMH As described under Assessment. Family Medical History Family Medical History: Brother had IA in his 50s Father had IA in his 60s Allergies and Home Medications Allergies Coded Allergies: amoxicillin (Verified Allergy, Unknown, Diarrhea, 05/27/21) codeine (Unverified Allergy, Unknown, PT HAS TOLERATED MORPHINE, LORTAB, & DILAUDID IN PAST, 07/06/22) Patient Home Medication List Home Medication List Reviewed: Yes Atorvastatin Calcium (Atorvastatin Calcium) 20 Mg Tablet, 20 MG PO DAILY, (Reported) Entered as Reported by: YOHANNES TILLMAN on 05/20/18 1231 Ketorolac Tromethamine (Ketorolac Tromethamine) 10 Mg Tablet, 10 MG PO Q8H Prescribed by: GALILEO GARCIA on 05/19/21 1024 Ketorolac Tromethamine (Ketorolac Tromethamine) 10 Mg Tablet, 10 MG PO PRN Prescribed by: TESHA MOURA on 05/27/21 1052 Ondansetron (Ondansetron Odt) 8 Mg Tab.rapdis, 8 MG PO Q6H PRN for NAUSEA/VOMITING Prescribed by: DONNA RICHMOND on 05/18/212035 Oxycodone HCl (Oxycodone HCl) 5 Mg Tablet, 5 MG PO Q6H PRN for PAIN-SEVERE (8- 10) Prescribed by: GALILEO GARCIA on 05/19/21 1025 Phenazopyridine HCl (Pyridium) 200 Mg Tablet, 1 TAB PO PRN Prescribed by: TESHA MOURA on 05/27/21 1052 Sulfamethoxazole/Trimethoprim (Bactrim Ds Tablet) 1 Each Tablet, 1 EACH PO BID Prescribed by: TESHA MOURA on 05/27/21 1048 Tamsulosin HCl (Flomax) 0.4 Mg Cap, 0.4 MG PO DAILY Prescribed by: TESHA MOURA on 05/27/21 1048 Physical Exam-Cardiology Physical Exam Vital Signs/I&O 07/06/22 07/06/22 07/06/22 07/06/22 05:42 07:38 08:00 08:17 Temp 36.2 36.3 Pulse 70 61 60 Resp 16 19 14 B/P (MAP) 152/96 (114) 149/87 156/95 (115) Pulse Ox 99 98 97 O2 Delivery Room Air Nasal Cannula Room Air Capillary Refill : Less Than 3 Seconds Constitutional: AAO x 3, well-nourished HEENT: EOMI, hearing is well preserved; No xanthelasmas are seen Neck: No carotid bruit; carotid pulses are 2 + bilaterally, with good upstrokes Respiratory: No accessory muscle use; chest expansion is symmetric, chest is bilaterally symmetric, crackles (a few basal, coarse crackles), other (good, bilateral air entry) Cardiovascular: regular rate-rhythm, S1 and S2, systolic murmur (soft JOYCELYN at card base) Gastrointestinal: No tender; soft; No guarding; audible bowel sounds Extremities: No clubbing, No cyanosis, No significant edema Neurologic/Psychiatric: oriented x 3, other (moves all limbs equally) Skin: No rash on exposed areas, No ulcerations on exposed areas Data Review Labs Laboratory Tests 07/06/22 05:45: Prothrombin Time 12.7, INR Comment 0.9, Activated Partial Thromboplast Time 30, D-Dimer < 0.27, Sodium Level 138, Potassium Level 3.6, Chloride Level 103, Carbon Dioxide Level 24, Anion Gap 11, Blood Urea Nitrogen 20H, Creatinine 1.27, Estimat Glomerular Filtration Rate 67, BUN/Creatinine Ratio 16, Glucose Level 113H, Calcium Level 8.8, Corrected Calcium 8.6, Magnesium Level 1.8, Total Bilirubin 0.7, Aspartate Amino Transf (AST/SGOT) 25, Alanine Aminotransferase (A LT/SGPT) 25, Alkaline Phosphatase 78, Total Creatine Kinase 241H, Creatine Elisabeth se MB 5.2, Myoglobin 58.9, Troponin I 0.422*H, B-Type Natriuretic Peptide 27.3, Total Protein 7.6, Albumin 4.3, Amylase Level 62, Lipase 30 07/06/22 05:49: White Blood Count 7.4, Red Blood Count 4.70, Hemoglobin 14.8, Hematocrit 43, Mean Corpuscular Volume 91, Mean Corpuscular Hemoglobin 32, Mean Corpuscular Hemoglobin Concent 35, Red Cell Distribution Width 11.9, Platelet Count 319, Mean Platelet Volume 9.4, Immature Granulocyte % (Auto) 0, Neutrophils (%) (Auto) 43, Lymphocytes (%) (Auto) 43, Monocytes (%) (Auto) 10, Eosinophils (%) (Auto) 3, Basophils (%) (Auto) 0, Neutrophils # (Auto) 3.2, Lymphocytes # (Auto) 3.2, Monocytes # (Auto) 0.8, Eosinophils # (Auto) 0.2, Basophils # (Auto) 0.0, Immature Granulocyte # (Auto) 0.0 Laboratory Tests 07/06/22 05:45 07/06/22 05:49 A/P-Cardiology Assessment/Admission Diagnosis Ac NSTEMI Hyperlipidemia Strong fam h/o premature CAD Discussion and Recomendations * DAPT, BB, enoxaparin * Card cath recommended. I reviewed in detail the rationale, procedure, risks, benefits, potential complication, and alternatives of card cath with him and his and answered questions. He understands and wishes to proceed. Arrangements are being made Clinical Quality Measures AMI/AHF: ASA po Prior to arrival: NIESHA Manriquez MD FACP FAC CCDS Jul 06, 2022 08:57
[2022-07-06] MEDS ORDERED: fentaNYL INJ 100 MCG/2 ML AMP ONE (09:01)
[2022-07-06] MEDS ORDERED: MIDAZOLAM 5 MG/5 ML (VERSED) VIAL ONE (09:01)
[2022-07-06] MEDS ORDERED: HEParin 1000 UNIT/ML (10ML VIAL) FOR BOLUS ONE (09:24)
[2022-07-06] MEDS ORDERED: NS IV 1000 ML 1,000 ML IV SCH (10:00)
--- NOTE | 2022-07-06 10:08 | Cardiac Cath Report ---
CARDIAC CATHETERIZATION DATE OF PROCEDURE: 07/06/22 INDICATION: NSTEMI HISTORY: The patient is a 57 year old male with hyperlipidemia, strong fam h/o premature CAD, chest pain this am, and troponin 0.422 PROCEDURES PERFORMED: 1. Card cath 2. iFR LAD PROCEDURE DESCRIPTION: After informed consent and in the fasting state, left heart catheterization was performed through the R femoral artery utilizing a 5 [place] system by percutaneous approach. Standard Daniel catheters were utili zed for the diagnostic portion of the procedure. All catheters were exchanged over a guidewire. iFR was performed after exchanging the sheath for a 6F sheath and using a 6F JL4 guide. Pt had received 100 mg enoxaparin at 7:30 am. Closure: Mynx used after angiography of the R femoral artery RESULTS: HEMODYNAMICS: LVEDP 15 mmHg, no pressure gradient on pull back, AO 123/77/98 CORONARY ANGIOGRAPHY: Mild coronary calcification present Left main coronary artery: Ok Left anterior descending coronary artery: Tandem 50-60% in prox and mid vessel with iFR 0.86 across them Left circumflex coronary artery: 60% mid, 95% proximal part of large OM Right coronary artery: Proximally occluded, heavily collateralized from the L cor system, distal vessel bypassable Left ventriculography: LVEF 50-55%, mild inferior hypokinesis IMPRESSION: 1. 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 CABG recommended. I called [facility]. Awaiting response from the surgeon NIESHA SONG MD FACP [facility] Jul 06, 2022 10:08
[2022-07-06 11:47] VITALS: BP 134/83
[2022-07-06] MEDS ORDERED: ASCO-262 PO (14:16)
[2022-07-06] MEDS ORDERED: CHOL-34 PO (14:16)
[2022-07-06] MEDS ORDERED: ATOR40TA70 PO (14:16)
[2022-07-06] MEDS ORDERED: PANT20TA18 PO (14:16)
[2022-07-06] MEDS ORDERED: ACET-2267 PO (14:17)
[2022-07-06] MEDS ORDERED: CYAN100088 PO (14:17)
[2022-07-06 15:09] VITALS: BP 104/62
--- NOTE | 2022-07-06 17:04 | Cardiology Discharge Summary ---
Diagnosis/Chief Complaint Date of Admission Jul 06, 2022 at 07:44 Date of Discharge 07/06/22 Admission Diagnosis Ac NSTEMI Hyperlipidemia Strong fam h/o premature CAD Final/Discharge Diagnosis Ac NSTEMI CAD - Multivessel CAD, LVEF 50-55%, mild inferior hypokineis, LVEDP 16 mmHg on card cath of 07/06/32 (see cath report for more details) Hyperlipidemia Fam h/o premature CAD Chief Complaint/HPI Chief Complaint/HPI 57 yo man with chest discomfort that initially started on 07/03/22, apparently brief but multiple recurrent episodes on 07/05/22, each lasting a few min, upper midsternal and L parasternal in location, moderate intensity, pressure-like, radiating to the back and shoulders, somewhat reminiscent of previous radicular pain for which he has had cervical spinal surgery. An episode awoke him at approx 4:30 am and was more intense than other episodes. Had resolved by the time he presented to the ER. Does not report palp or syncope. Has had mild cough, nonproductive. No shortness of breath. No swelling. No n/v/d Cath performed. Results reviewed with Mr Quinn and his . They requested transfer to [facility]. We contacted the transfer service. Dr Arreguin of the CV svce at [facility] has accepted. Transfer is being arranged. Discharge Summary Discussion & Recommendations Home Medications Reviewed patient Home Medication Reconciliation performed by pharmacy medication reconciliations crime lab technician and/or nursing. Patients Allergies have been reviewed. Discharge Home Medications: Reviewed and agree with Discharge Medication list on patient's Discharge Instruction sheet Clinical Quality Measures AMI/AHF: ASA po Prior to arrival: NIESHA Manriquez MD FACP FAC CCDS Jul 06, 2022 17:04
[2022-07-06 17:35] VITALS: BP 106/60
== END 2022-07-06 16:30 | disposition short-term general hospital (02) | DRG 282 ==
LOC: EDUNIT# 05:36 → ER 05:38 → CSD 07:44
PROVIDERS: ADMIT Family Medicine; ATTEND Internal Medicine
PROC: 4A023N7 Measurement of Cardiac Sampling and Pressure, Left Heart, Percutaneous Approach (ICD-10-PCS; principal; 2022-07-06)
PROC: B2111ZZ Fluoroscopy of Multiple Coronary Arteries using Low Osmolar Contrast (ICD-10-PCS; 2022-07-06)
PROC: B2151ZZ Fluoroscopy of Left Heart using Low Osmolar Contrast (ICD-10-PCS; 2022-07-06)
DX: I21.4 Non-ST elevation (NSTEMI) myocardial infarction (principal); I25.110 Atherosclerotic heart disease of native coronary artery with unstable angina pectoris; E78.00 Pure hypercholesterolemia, unspecified; K21.9 Gastro-esophageal reflux disease without esophagitis; Z82.49 Family history of ischemic heart disease and other diseases of the circulatory system; Z79.899 Other long term (current) drug therapy; Z88.1 Allergy status to other antibiotic agents; Z88.5 Allergy status to narcotic agent
CPT/HCPCS: 36415; 71045; 80053; 82150; 82550; 82553; 83690; 83735; 83874; 83880; 84484; 85025; 85379; 85610; 85730; 93005; 93041; 93458

== ENCOUNTER 2022-09-04 09:14 | Outpatient (RCR) | payer BC ==
[~2022-09-04 09:14] MED LIST changes: +ACET-2267 PO; +ASCO-262 PO; +ATOR40TA70 PO; +CHOL-34 PO; +CYAN100088 PO; +PANT20TA18 PO
== END 2022-09-16 | disposition home or self-care (01) ==
LOC: CR 09:14
PROVIDERS: ATTEND Thoracic Surgery (Cardiothoracic Vascular Surgery)
DX: Z29.8 Encounter for other specified prophylactic measures (principal); I21.9 Acute myocardial infarction, unspecified; Z98.890 Other specified postprocedural states
CPT/HCPCS: 93798